=== PATIENT | female | born 1990 | race Caucasian/White ===

== ENCOUNTER 2022-02-10 08:12 | Outpatient (REF) | payer OTHER, SELFPAY ==
[2022-02-10 11:23] LABS: Appearance Urine CLOUDY; Color Urine YELLOW; Glucose Urine UA NEG (NEG); Leukocyte Esterase Urine NEG (NEG); Nitrite Urine NEG (NEG); Specific Gravity - Urine 1.025 (1.005-1.025); Urine Blood NEG (NEG); Urine Ketones NEG (NEG); Urine Protein NEG (NEG-TRACE)
[2022-02-10 11:28] LABS: MANUAL DIFF FLAG NO
[2022-02-10 11:36] LABS: Basophils Absolute Auto 0.1 X10*3/uL (0.0-0.2); Basophils Percent Auto 0.9 % (0-2); Eosinophils Absolute Auto 0.2 X10*3/uL (0.0-0.4); Eosinophils Percent Auto 2.8 % (0-4); Hematocrit 35.8 % (37.0-47.0); Hemoglobin 10.9 g/dl (12.0-16.0); Imm Gran Abs Auto 0.02 X10*3/uL (0.00-0.03); Imm Gran Pct Auto 0.3 % (0.0-0.4); Lymphocytes Absolute Auto 2.6 X10*3/uL (1.2-4.9); Lymphocytes Percent Auto 39.4 % (20-40); Mean Corpuscular HGB Conc 30.4 g/dl (31.0-35.0); Mean Corpuscular Hemoglobin 21.8 pg (27.0-33.0); Mean Corpuscular Volume 71.7 fL (80.0-98.0); Mean Platelet Volume 10.8 fL (9.4-12.3); Monocytes Absolute Auto 0.6 X10*3/uL (0.1-1.2); Monocytes Percent Auto 8.4 % (2-11); Neutrophils Absolute Auto 3.2 x10*3/uL (2.0-8.3); Neutrophils Percent Auto 48.2 % (45-73); Platelet Count 466 X10*3/uL (160-400); Red Blood Count 4.99 X10*6/uL (4.20-5.50); Red Cell Distribution Width 16.2 % (11.0-16.0); White Blood Count 6.7 X10*3/uL (4.8-10.8)
[2022-02-10 12:04] LABS: Alanine Aminotransferase 23 U/L (0-31); Albumin Level 4.1 g/dL (3.5-5.0); Alkaline Phosphatase 65 U/L (39-117); Anion Gap 10 (12-20); Aspartate Amino Transferase 16 U/L (5-31); Bilirubin Total 0.3 mg/dL (0.0-1.0); Blood Urea Nitrogen 14 mg/dL (9-16); Calcium 9.3 mg/dL (8.4-10.2); Carbon Dioxide 24 mmol/L (22-29); Chloride 108 mmol/L (96-108); Cholesterol 220 mg/dL; Estimated Glomerular Filt Rate > 60; Glucose Fasting 111 mg/dL (60-99); HDL Cholesterol 44 mg/dL; LDL Cholesterol Calculated 132 mg/dl; Potassium 4.4 mmol/L (3.3-5.1); Sodium 138 mmol/L (135-145); Total Protein 7.6 g/dL (6.5-8.0); Triglycerides 224 mg/dL
[2022-02-10 12:25] LABS: Amorphous Sediment Urine 4+ /LPF; Squamous Epithelial Cell Urine 1+ /LPF
[2022-02-10 12:26] LABS: Bacteria Urine TRACE /LPF; RBC Urine 0 /HPF (0); WBC Urine 0 /HPF (0-4)
== END 2022-02-10 08:13 | disposition home or self-care (01) ==
LOC: HO.HMGCLDS 08:12
PROVIDERS: Visit Provider Internal Medicine
DX: Z00.00 Encounter for general adult medical examination without abnormal findings (principal)
CPT/HCPCS: 36415; 80053; 80061; 81001; 84443; 85025

== ENCOUNTER 2023-01-19 14:39 | Outpatient (REF) | payer OTHER, SELFPAY ==
[2023-01-20 02:07] LABS: CT PCR NOT DETECTED (Not Detect.); NG PCR NOT DETECTED (Not Detect.)
[2023-01-20 12:54] LABS: BV Int Neg Control Negative (Negative); BV Int Pos Control Positive (Positive)
[2023-01-27 09:14] LABS: HPV 16 RNA NOT DETECTED (NOT DETECTED); HPV mRNA E6/E7 rflx Detected (Not Detected)
== END 2023-01-19 14:40 | disposition home or self-care (01) ==
LOC: HO.LNP 14:39
PROVIDERS: PCP Internal Medicine; Visit Provider Advanced Practice Midwife
DX: Z01.419 Encounter for gynecological examination (general) (routine) without abnormal findings (principal); E66.01 Morbid (severe) obesity due to excess calories; L68.0 Hirsutism; R73.9 Hyperglycemia, unspecified; D64.9 Anemia, unspecified; N92.0 Excessive and frequent menstruation with regular cycle; Z68.41 Body mass index [BMI] 40.0-44.9, adult; Z20.2 Contact with and (suspected) exposure to infections with a predominantly sexual mode of transmission; Z79.899 Other long term (current) drug therapy
CPT/HCPCS: 0353U; 87480; 87510; 87624; 87625; 87660; 88142

== ENCOUNTER 2023-01-31 16:23 | Outpatient (REF) | payer OTHER, SELFPAY ==
--- NOTE | ~2023-01-31 | US_ITS ---
EXAMINATION: US PELVIS COMPLETE CLINICAL INFORMATION: Hirsutism COMPARISON: None TECHNIQUE: Transabdominal and transvaginal imaging was performed. FINDINGS: The uterus is of normal size and echogenicity measuring 8.5 x 5.0 x 6.4 cm. A thickened and heterogeneous endometrium measuring 1.6 cm. Nabothian cysts in the cervix. A 2.5 x 2.0 x 2.6 cm pedunculated myoma off the anterior body of uterus. A 1.8 x 1.8 x 1.9 cm submucosal myoma with a less than 50% submucosal component along the anterior body of uterus. The right ovary is of normal size and echogenicity. The right measures 3.9 x 2.5 x 1.9 cm for a volume of 9.7 mL. The left ovary is mildly enlarged which can be accounted for by a physiologic dominant follicle (no follow-up imaging recommended) and measures 3.8 x 2.4 x 2.7 cm for a volume of 12.9 mL. There is no pelvic free fluid. US/US pelvic and transvaginal IMPRESSION: 1. The left ovary is mildly enlarged entering 12.9 cm in volume which can be accounted for by a physiologic dominant follicle (no follow-up imaging recommended). The right ovary is normal in size. 2. A 1.6 cm thickened and heterogeneous endometrium seen underlying lesion such as polyps difficult to exclude. 3. Myomatous uterus with a 2.6 cm pedunculated myoma and a 1.9 cm submucosal myoma with a less than 60% submucosal component.
== END 2023-01-31 16:24 | disposition home or self-care (01) ==
LOC: HO.US 16:23
PROVIDERS: PCP Internal Medicine; Visit Provider Advanced Practice Midwife
DX: E66.01 Morbid (severe) obesity due to excess calories (principal); L68.0 Hirsutism; N92.0 Excessive and frequent menstruation with regular cycle
CPT/HCPCS: 76830; 76856

== ENCOUNTER 2023-02-01 07:27 | Outpatient (REF) | payer OTHER, SELFPAY ==
[2023-02-01 08:25] LABS: Hematocrit 34.5 % (37.0-47.0); Hemoglobin 10.2 g/dl (12.0-16.0); Mean Corpuscular HGB Conc 29.6 g/dl (31.0-35.0); Mean Corpuscular Hemoglobin 19.6 pg (27.0-33.0); Mean Corpuscular Volume 66.2 fL (80.0-98.0); Mean Platelet Volume 10.2 fL (9.4-12.3); Platelet Count 539 X10*3/uL (160-400); Red Blood Count 5.21 X10*6/uL (4.20-5.50); Red Cell Distribution Width 18.7 % (11.0-16.0); White Blood Count 8.4 X10*3/uL (4.8-10.8)
[2023-02-01 08:33] LABS: Estimated Average Glucose 111 mg/dL; Hemoglobin A1c % 5.5 %
[2023-02-01 09:06] LABS: Anion Gap 16 (12-20); Blood Urea Nitrogen 9 mg/dL (9-16); Calcium 9.5 mg/dL (8.4-10.2); Carbon Dioxide 20 mmol/L (22-29); Chloride 105 mmol/L (96-108); Estimated Glomerular Filt Rate > 60; Glucose Random 111 mg/dL (60-115); Potassium 3.7 mmol/L (3.3-5.1); Sodium 137 mmol/L (135-145)
[2023-02-01 09:23] LABS: TSH reflex Free T4 2.49 uIU/mL (0.32-4.0)
[2023-02-03 14:58] LABS: Sex Hormone Binding Globulin 20 nmol/L (17-124)
[2023-02-03 16:53] LABS: DHEA Sulfate 149 mcg/dL (19-237)
[2023-02-08 07:28] LABS: Testosterone, Free 4.8 pg/mL (0.1-6.4); Testosterone, Total 24 ng/dL (2-45)
== END 2023-02-01 07:28 | disposition home or self-care (01) ==
LOC: HO.LAB 07:27
PROVIDERS: PCP Internal Medicine; Visit Provider Advanced Practice Midwife
DX: Z01.419 Encounter for gynecological examination (general) (routine) without abnormal findings (principal); D64.9 Anemia, unspecified; R73.9 Hyperglycemia, unspecified; N93.9 Abnormal uterine and vaginal bleeding, unspecified; E66.01 Morbid (severe) obesity due to excess calories; L68.0 Hirsutism; Z20.2 Contact with and (suspected) exposure to infections with a predominantly sexual mode of transmission
CPT/HCPCS: 36415; 80048; 82627; 83036; 84270; 84402; 84403; 84443; 85027

== ENCOUNTER 2023-02-18 07:49 | Outpatient (AMB) | payer OTHER, SELFPAY ==
--- NOTE | 2023-02-18 07:54 | A.OFFPC_ITS ---
Vital Signs 02/18/23 07:55 Height 5 ft 7 in Weight 256 lb BMI 40.1 BP 118/74 Blood Pressure Location Lt brachial Position Sitting Pulse 80 Pulse Source Pulse Oximeter Pulse Oximetry (%) 97 Oxygen Delivery Method Room Air Intake Visit Reasons: PE Intake Note: Pt is here today for PE. Allergies SEASONAL ALLERGIES Allergy (Mild, Uncoded 02/18/23 07:57) ITCHY EYES Seasonal allergies in the summ Allergy (Unknown, Uncoded 02/18/23 07:57) Dry Eye Medication List - Last Reconciled 02/18/23 by Jeanette Rueda MD ferrous sulfate 324 mg PO DAILY omeprazole 20 mg PO DAILY Tobacco use date assessed: 02/18/23 Dental Screening Dental Screen Date: 02/18/23 Did you have a dental visit in the last 12 months?: No Did you have a dental problem in the last 6 months where you did not have access to dental care?: No Was dental information given to patient?: Yes HPI PE HPI Details Pt presents for PE. Pt c/o RUQ and epigastric discomfort worse after eating fatty or spicy foods despite taking Omeprazole for 1 1/2 year. Patient denies nausea vomiting hematochezia melena constipation diarrhea. 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 1. Little interest or pleasure in doing things: several days 2. Feeling down, depressed, or hopeless: not at all 3. Trouble falling or staying asleep, or sleeping too much: several days 4. Feeling tired or having little energy: several days 5. Poor appetite or overeating: several days 6. Feeling bad about yourself - or that you are a failure or have let yourself or your family down: not at all 7. Trouble concentrating on things, such as reading the newspaper or watching television: several days 8. Moving or speaking so slowly that other people could have noticed. Or the opposite - being so fidgety or restless that you have been moving around a lot more than usual: not at all 9. Thoughts that you would be better off or of hurting yourself in some way: not at all Total score: 5 Depression Screening Interpretation: Negative Source: Developed by Drs. Dewey Rothman, Gema Keller, Shane Hitchcock and colleagues, with an educational vikki from [employer]. Thrive Questionnaire Date Thrive assessed: 02/18/23 I am a: Patient What is your living situation today?: I have a steady place to live Within the past 12 months, did the food you bought not last and you didn't have the money to get more?: Never true Within the past 12 months, did you worry whether your food would run out before you got money to buy more?: Never true Do you have trouble paying for medicines?: No Do you have trouble getting transportation to medical appointments?: No Do you have trouble paying your heating and electricity bill?: No Do you have trouble taking care of your child, family member or friend?: No Do you have trouble with day-to-day activities such as bathing, preparing meals, shopping, managing finances, etc.?: No Are you currently unemployed and looking for a job?: No Are you interested in more education?: No Please select the resources that you would like help with: None AUDIT C Alcohol Use Questionnaire (AUDIT-C) 1. How often do you have a drink containing alcohol?: Monthly or less 2. How many drinks containing alcohol do you have on a typical day when you are drinking?: 1 or 2 3. How often do you have six or more drinks on one occasion?: Never Total Score: 1 MIMI-7 AMB Questionnaire MIMI-7 Date MIMI - 7 assessed: 02/18/23 Feeling nervous, anxious, or on edge: 1 = Several days Not being able to stop or control worryin = Not at all Worrying too much about different things: 0 = Not at all Trouble relaxin = Not at all Being so restless that it is hard to sit still: 0 = Not at all Becoming easily annoyed or irritable: 1 = Several days Feeling afraid as if something awful might happen: 0 = Not at all Total MIMI-7 score (0-4 normal; 5-9 mild; 10-14 moderate; 15-21 severe): 2 Source: Developed by Drs. Dewey Rothman, Gema Keller, Shane Hitchcock and colleagues, with an educational vikki from [employer]. Review of Systems Const All systems reviewed & are unremarkable except as noted in HPI and below Reports no additional complaints Eyes Reports no additional complaints ENT Reports no additional complaints Card Reports no additional complaints Resp Reports no additional complaints GI Reports no additional complaints Reports no additional complaints Physical exam (Primary Care) Vital Signs: Last Vital Signs Pulse 80 02/18/23 07:55 BP 118/74 02/18/23 07:55 Pulse Ox 97 02/18/23 07:55 Oxygen Delivery Method Room Air 02/18/23 07:55 BMI result Body Mass Index 40.1 Tobacco/Smoking Status: Tobacco use Status Tobacco use date assessed 02/18/23 02/18/23 08:03 Patient Tobacco Use Status Never used Tobacco 02/18/23 08:17 e-Cigarette/Vaping Use Never Used 02/18/23 08:17 PHQ-9: PHQ-9 Score PHQ-9: Total score 5 02/18/23 08:17 Depression Screening Interpretation: Negative Thrive Assessment: Date of Thrive Assessment Date Thrive assessed 02/18/23 02/18/23 08:03 Const General: no acute distress HENMT Ears: hearing grossly normal bilaterally Mouth: Normal oral and palatal mucosa present Throat: Yes posterior oropharynx normal Eyes General: appearance normal, both eyes and all related structures Neck Neck: Yes no lymphadenopathy and Yes supple Resp Effort & Inspection: normal respiratory effort Auscultation: clear to auscultation bilaterally Cardio Rhythm: regular rhythm Heart sounds: S1 normal heart sound present and S2 normal heart sound present GI Inspection: Yes normal to inspection Palpation (GI): Soft to palpation Percussion: Yes normal to percussion Auscultation: normal bowel sounds Assessment and Plan Assessment & Plan (1) Annual physical exam: Code(s): Z00.00 - Encounter for general adult medical examination without abnormal findings Plan: Well-balanced diet regular physical activity discussed with the patient. Lipid profile will be checked today (2) Dysplastic nevi: Comment: Referred to dermatology Code(s): D23.9 - Other benign neoplasm of skin, unspecified (3) Abdominal pain: Code(s): R10.9 - Unspecified abdominal pain Plan: Check abdominal ultrasound to rule out gallstones and stool H pylori antigen. She will be referred to GI (4) Overweight: Code(s): E66.3 - Overweight Plan: Weight loss discussed with the patient Orders: Orders IRON PROFILE Today D64.9 - Anemia, unspecified, E66.01 - Morbid (severe) obesity due to excess calories, Z00.00 - Encounter for general adult medical examination without abnormal findings Liver Panel Today D64.9 - Anemia, unspecified, E66.01 - Morbid (severe) obesity due to excess calories, Z00.00 - Encounter for general adult medical examination without abnormal findings H pylori Ag Stool Today D64.9 - Anemia, unspecified, E66.01 - Morbid (severe) obesity due to excess calories, Z00.00 - Encounter for general adult medical examination without abnormal findings TSH reflex Free T4 Today D64.9 - Anemia, unspecified, E66.01 - Morbid (severe) obesity due to excess calories, Z00.00 - Encounter for general adult medical examination without abnormal findings US abdomen limited Today R10.9 - Unspecified abdominal pain Referrals Dermatology Referral D23.9 - Other benign neoplasm of skin, unspecified, D64.9 - Anemia, unspecified, E66.01 - Morbid (severe) obesity due to excess calories, Z00.00 - Encounter for general adult medical examination without abnormal findings Gastroenterology Referral K21.9 - Gastro-esophageal reflux disease without esophagitis, R10.9 - Unspecified abdominal pain Coding Level of Care Code Est Pt Prev Care 18-39y(49675) Diagnoses Annual physical exam Z00.00 Dysplastic nevi D23.9 Abdominal pain R10.9 Overweight E66.3
[2023-02-18 07:55] VITALS: BP 118/74; PULSE 80; O2SAT 97; BMI 40.1
== END 2023-02-18 08:30 | disposition home or self-care (01) ==
PROVIDERS: Visit Provider Internal Medicine
DX: Z00.00 Encounter for general adult medical examination without abnormal findings (principal); D23.9 Other benign neoplasm of skin, unspecified; R10.9 Unspecified abdominal pain; E66.3 Overweight
CPT/HCPCS: 99395

== ENCOUNTER 2023-02-18 08:31 | Outpatient (REF) | payer OTHER, SELFPAY ==
[2023-02-18 12:03] LABS: Alanine Aminotransferase 49 U/L (0-31); Albumin Level 4.1 g/dL (3.5-5.0); Alkaline Phosphatase 69 U/L (39-117); Aspartate Amino Transferase 28 U/L (5-31); Bilirubin Direct 0.1 mg/dL (0.0-0.5); Bilirubin Total 0.3 mg/dL (0.0-1.0); Iron 38 mcg/dL (30-160); Percent Iron Saturation 11 % (15-50); Total Iron Binding Capacity 349 mcg/dL (228-428); Unsaturated Iron Binding 311 ug/dL
[2023-02-18 12:10] LABS: TSH reflex Free T4 1.65 uIU/mL (0.32-4.0)
== END 2023-02-18 08:32 | disposition home or self-care (01) ==
LOC: HO.HMGCLDS 08:31
PROVIDERS: PCP Internal Medicine; Visit Provider Internal Medicine
DX: Z00.00 Encounter for general adult medical examination without abnormal findings (principal); E66.01 Morbid (severe) obesity due to excess calories; D64.9 Anemia, unspecified
CPT/HCPCS: 36415; 80076; 83540; 84443

== ENCOUNTER 2023-03-18 13:55 | Outpatient (AMB) | payer OTHER, SELFPAY ==
[2023-03-18 14:33] VITALS: BP 120/70; BMI 40.2
--- NOTE | 2023-03-18 14:33 | A.OFFVIS_ITS ---
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 She also had some features for PCOS including hirsutism over weight and hair thinning on top. So full lab panel was ordered including fasting labs and labs to evaluate for features of PCOS. All of these have been reviewed in great detail additionally her Pap smear showed HPV virus but no cell changes. She also had Gardnerella her CBC was low her fasting glucose was in the prediabetic range. The ultrasound showed fibroids and a thickened endometrium however she started her menses the following week after the ultrasound so that physiologically makes sense. Reviewed each and every ultrasound finding and every single lab finding and reviewed possibilities and interventions. She is taking her iron she feels like she is trying to make better choices with her diet and exercise and she has been working out at least an hour day in the gym here at the hospital and she is feeling much better in noticing results already. She has her follow-up appointment with her primary next year and I am going to order a follow-up ultrasound for 1 year from the previous ultrasound and we will also plan on repeating her Pap smear next year as well. Discussed all of these in concert with the possibility of PCOS even though some of the PCOS type labs specifically did not show evidence of it. She is going to continue her excellent self-care efforts. 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 Tobacco Use Status: Never used Tobacco e-Cigarette/Vaping Use: Never Used service: No Current occupational status: employed Cognitive needs: No Hearing needs: No Vision needs: Yes (contacts) Female Reproductive History Menstrual Date of last menstrual period: 03/11/23 control method: none Date of last pap smear: 01/20/23 (+HPV) History of abnormal pap smear: Yes Physical Exam Vital Signs: Last Vital Signs BP 120/70 03/18/23 14:33 BMI result Body Mass Index 40.2 Results Reviewed Results Reviewed: Name: Jasmin Cabrera Age/Sex: 33/F : 1990 Unit#: [id number] Attend Dr: Sherri Loomis CNM Re02/01/23 Status: DEP [facility] SPEC : [id number] JULIA: 02/01/23 STATUS: COMP REQ : [id number] RECD: 02/01/[address]: Sherri Loomis CNM COMP: 02/01/23 ENTERED: 02/01/[address]: Jeanette Rueda MD ORDERED: CBC No Diff Test Result Flag Reference Site WBC 8.4 4.8-10.8 X10*3/uL RBC 5.21 4.20-5.50 X10*6/uL HGB 10.2 L 12.0-16.0 g/dl HCT 34.5 L 37.0-47.0 % MCV 66.2 L 80.0-98.0 fL MCH 19.6 L 27.0-33.0 pg MCHC 29.6 L 31.0-35.0 g/dl RDW 18.7 H 11.0-16.0 % PLT 539 H 160-400 X10*3/uL MPV 10.2 9.4-12.3 fL NRBC Pct Auto 0.0 0.0-0.2 /100WBC NRBC Abs Auto 0.000 0.0-0.012 X10 *3/uL Name:?MarvelkaylahRoelswapnil Age/Sex: 32/F Attending: Sherri Loomis CNM : 1990 Submitted by: Sherri Loomis CNM Copies to: Jeanette Rueda MD MR #: [id number] ? Status: DEP REF Collected: 01/19/23 Location: [facility] Received: 01/20/23 Interpretation Satisfactory for evaluation. Negative for intraepithelial lesion or malignancy. Coccobacilli consistent with shift in vaginal wesley. Moderate inflammation. HPV mRNA E6/E7:? DETECTED This assay detects E6/E7 viral messenger RNA (mRNA) from 14 high-risk HPV types (16, 18, 31, 33, 35, 39, 45, 51, 52, 56, 58, 59, 66, 68) HPV Type 16 RNA:? Not Detected HPV Type 18/45 RNA: ? Not Detected HPV testing performed by [facility], [place], [place].? See reference laboratory portion of the EMR for entire report. Patient: Jasmin Cabrera MR#: [id number] : 1990 Acct:[id number] Age/Sex: 33 / F ADM Date: 01/31/23 Loc: . Attending Dr: Sherri Loomis CNM Ordering Physician: Sherri Loomis CNM Date of Service: 01/31/23 Procedure(s): US pelvic and transvaginal Accession Number(s): [id number] cc: Sherri Loomis CNM~ EXAMINATION: US PELVIS COMPLETE CLINICAL INFORMATION: Hirsutism COMPARISON: None TECHNIQUE: Transabdominal and transvaginal imaging was performed. FINDINGS: The uterus is of normal size and echogenicity measuring 8.5 x 5.0 x 6.4 cm. A thickened and heterogeneous endometrium measuring 1.6 cm. Nabothian cysts in the cervix. A 2.5 x 2.0 x 2.6 cm pedunculated myoma off the anterior body of uterus. A 1.8 x 1.8 x 1.9 cm submucosal myoma with a less than 50% submucosal component along the anterior body of uterus. The right ovary is of normal size and echogenicity. The right measures 3.9 x 2.5 x 1.9 cm for a volume of 9.7 mL. The left ovary is mildly enlarged which can be accounted for by a physiologic dominant follicle (no follow-up imaging recommended) and measures 3.8 x 2.4 x 2.7 cm for a volume of 12.9 mL. There is no pelvic free fluid. US/US pelvic and transvaginal IMPRESSION: 1.? The left ovary is mildly enlarged entering 12.9 cm in volume which can be accounted for by a physiologic dominant follicle (no follow-up imaging recommended). The right ovary is normal in size. 2.? A 1.6 cm thickened and heterogeneous endometrium seen underlying lesion such as polyps difficult to exclude. 3.? Myomatous uterus with a 2.6 cm pedunculated myoma and a 1.9 cm submucosal myoma with a less than 60% submucosal component. ? Dictated By: Courtney Moore MD Signed By: <Electronically signed by Courtney Moore MD in OV> 02/05/231656 DD/ 53 TD/TT:? Skip Hoist Operator: - Unit#: [id number] Attend Dr: Sherri Loomis CNM Re02/01/23 Status: DEP REF Location: .LAB Disch: SPEC : [id number] JULIA: 02/01/23 STATUS: COMP REQ : [id number] RECD: 02/01/[address]: Sherri Loomis CNM COMP: 02/08/23 ENTERED: 02/01/[address]: Jeanette Rueda MD ORDERED: DHEAS, Sex Hor Bin Bridgette, Testost Fr & T Test Result Flag Reference Site DHEA-Sulfate 149 19-237 mcg/dL QUM THIS TEST WAS PERFORMED AT: [facility] [address] [place] [id number] DANITA GUERRA MD Sex Hor Bin Bridgette 20 17-124 nmol/L QUM THIS TEST WAS PERFORMED AT: [facility] [address] [place] [phone] DANITA GUERRA MD Testost, Tot 24 2-45 ng/dL QUM For additional information, please refer to http://education.[employer]/faq/ TmgdwBiuqbcionrieSMSNNYHNW361 (This link is being provided for informational/ educational purposes only.) This test was developed and its analytical performance characteristics have been determined by [facility] [place], [place]. It has not been cleared or approved by the U.S. Food and Drug Administration. This assay has been validated pursuant to the CLIA regulations and is used for clinical purposes. Testost, Free 4.8 0.1-6.4 pg/mL QUM This test was developed and its analytical performance characteristics have been determined by [facility] [place], [place]. It has not been cleared or approved by the U.S. Food and Drug Administration. This assay has been validated pursuant to the CLIA regulations and is used for clinical purposes. THIS TEST WAS PERFORMED AT: [facility] [address] ISAIAS WOODWARD MD,PHD SPEC : [id number] JULIA: 02/10/22 STATUS: COMP REQ : [id number] RECD: 02/10/[address] [facility] [address]: Jeanette Rueda MD COMP: 02/10/22 ENTERED: 02/10/[address] [facility] [address]: ORDERED: CMP Fast, Lipid Panel, TSH Rflx Test Result Flag Reference Site Sodium 138 135-145 mmol/L Potassium 4.4 3.3-5.1 mmol/L CL 108 96-108 mmol/L CO2 24 22-29 mmol/L Gap 10 L 12-20 BUN 14 9-16 mg/dL Creat 0.81 0.5-1.4 mg/dL EGFR > 60 NOTE: For -Mongolian individuals, multiply the result by 1.210. Chronic Kidney Disease: Estimated GFR < 60 mL/min/1.73m2 Severe Kidney Disease: Estimated GFR < 15 mL/min/1.73m2 FBS 111 H 60-99 mg/dL A fasting glucose from 100-125 mg/dl is considered impaired (pre-diabetes). CA 9.3 8.4-10.2 mg/dL Total Bili 0.3 0.0-1.0 mg/dL AST (GOT) 16 5-31 U/L ALT (GPT) 23 0-31 U/L Protein, Total 7.6 6.5-8.0 g/dL Alb 4.1 3.5-5.0 g/dL Triglyceride 224 mg/dL Desirable Triglyceride: less than 150 mg/dL Borderline High Triglyceride 150-199 mg/dL High Triglyceride: 200-499 mg/dL Very High Triglyceride: greater than or equal to 5OO mg/dL Chol 220 mg/dL Desirable Cholesterol: less than 200 mg/dL Borderline High Cholesterol: 200-239 mg/dL High Cholesterol: greater than 239 mg/dL LDL Calculated 132 mg/dl Desirable LDL: less than 100 mg/dL Near Optimal/Above Optimal LDL: 110-129 mg/dL Borderline High LDL: 130-159 mg/dL High LDL: 160-189 mg/dL Very High LDL: greater than or equal to 190 mg/dL HDL 44 mg/dL Desirable HDL: greater than 40 mg/dL Note: This HDL assay may give artificially low results in patients with liver disease. Alk Phos 65 39-117 U/L TSH 2.30 0.32-4.0 uIU/mL Assessment & Plan Assessment & Plan (1) Menorrhagia with regular cycle: Code(s): N92.0 - Excessive and frequent menstruation with regular cycle (2) Hirsutism: Code(s): L68.0 - Hirsutism (3) Fibroids: Code(s): D21.9 - Benign neoplasm of connective and other soft tissue, unspecified (4) Cervical cancer screening: Comment: HPV is positive; Pap= negative; f/u 1 yr. Code(s): Z12.4 - Encounter for screening for malignant neoplasm of cervix (5) Obesity, morbid, BMI 40.0-49.9: Code(s): E66.01 - Morbid (severe) obesity due to excess calories (6) Anemia: Code(s): D64.9 - Anemia, unspecified (7) Hyperglycemia: Code(s): R73.9 - Hyperglycemia, unspecified Plan Is here to review her ultrasound that she had done to evaluate if there is any reason for her heavy periods it. She also had some features for PCOS including hirsutism over weight and hair thinning on top. So full lab panel was ordered including fasting labs and labs to evaluate for features of PCOS. All of these have been reviewed in great detail additionally her Pap smear showed HPV virus but no cell changes. She also had Gardnerella her CBC was low her fasting glucose was in the prediabetic range. The ultrasound showed fibroids and a thickened endometrium however she started her menses the following week after the ultrasound so that physiologically makes sense. Reviewed each and every ultrasound finding and every single lab finding and reviewed possibilities and interventions. She is taking her iron she feels like she is trying to make better choices with her diet and exercise and she has been working out at least an hour day in the gym here at the hospital and she is feeling much better in noticing results already. She has her follow-up appointment with her primary next year and I am going to order a follow-up ultrasound for 1 year from the previous ultrasound and we will also plan on repeating her Pap smear next year as well. Discussed all of these in concert with the possibility of PCOS even though some of the PCOS type labs specifically did not show evidence of it. She is going to continue her excellent self-care efforts. education was done about all of the above Orders: Orders US pelvic and transvaginal 11 Months D21.9 - Benign neoplasm of connective and other soft tissue, unspecified, E66.01 - Morbid (severe) obesity due to excess calories, L68.0 - Hirsutism, N92.0 - Excessive and frequent menstruation with regular cycle, Z12.4 - Encounter for screening for malignant neoplasm of cervix Coding Level of Care Code Est Pt Level 3 (19660) Diagnoses Menorrhagia with regular cycle N92.0 Hirsutism L68.0 Fibroids D21.9 Cervical cancer screening Z12.4 Obesity, morbid, BMI 40.0-49.9 E66.01 Anemia D64.9 Hyperglycemia R73.9
== END 2023-03-18 15:14 | disposition home or self-care (01) ==
LOC: HO.HWS 13:55
PROVIDERS: PCP Internal Medicine; Visit Provider Advanced Practice Midwife
DX: N92.0 Excessive and frequent menstruation with regular cycle (principal); L68.0 Hirsutism; D21.9 Benign neoplasm of connective and other soft tissue, unspecified; Z12.4 Encounter for screening for malignant neoplasm of cervix; E66.01 Morbid (severe) obesity due to excess calories; D64.9 Anemia, unspecified; R73.9 Hyperglycemia, unspecified
CPT/HCPCS: 99213

== ENCOUNTER → 2023-03-18 13:55 | Outpatient (BNVA) | payer OTHER, SELFPAY | PROVIDERS: PCP Internal Medicine; Visit Provider Advanced Practice Midwife ==

== ENCOUNTER 2023-03-22 07:47 | Outpatient (REF) | payer OTHER, SELFPAY ==
--- NOTE | ~2023-03-22 | US_ITS ---
EXAMINATION: US ABDOMEN LIMITED CLINICAL INFORMATION: Unspecified abdominal pain. COMPARISON: None available. TECHNIQUE: Real-time imaging of the right upper quadrant abdominal viscera. FINDINGS: PANCREAS: Normal. LIVER: The liver is normal in size. The liver contour is normal. There is diffuse increased liver parenchymal echogenicity. No focal hepatic lesion. There is no intrahepatic biliary duct dilatation seen. GALLBLADDER: Normal. The gallbladder is physiologically distended without evidence of stones, sludge, polyps, wall thickening or pericholecystic fluid. COMMON BILE DUCT: Normal in caliber measuring 0.3 cm in diameter. RIGHT KIDNEY: Normal. No hydronephrosis. No renal calculi or focal parenchymal lesions. The kidney measures 10.9 cm in maximum dimension. FREE FLUID: None. US/US abdomen limited IMPRESSION: There is generalized increase in hepatic echotexture, consistent with fatty infiltration or hepatocellular disease. Please correlate clinically. No focal hepatic mass or intrahepatic biliary dilatation is seen.
== END 2023-03-22 07:48 | disposition home or self-care (01) ==
LOC: HO.US 07:47
PROVIDERS: PCP Internal Medicine; Visit Provider Internal Medicine
DX: R10.9 Unspecified abdominal pain (principal)
CPT/HCPCS: 76705

== ENCOUNTER 2023-06-01 11:23 | Outpatient (AMB) | payer OTHER, SELFPAY ==
--- NOTE | 2023-06-01 11:27 | MHC.OFFVIS ---
Intake Vital Signs 06/01/23 11:28 Height 5 ft 7 in Weight 253 lb 8.505 oz BMI 39.7 BP 130/76 Blood Pressure Location Lt brachial Position Sitting Pulse 69 Intake Visit Reasons: Gastroesophageal reflux disease (GERD) Intake Note: Jasmin presents in the office as a new patient for GERD. CC: She is here today for her GERD - she takes omeprazole and she states that she does see a difference when she does not take it. No irregular bowel movements. She has pains in her stomach at times but no chest. Intervention Analyst Required: No Allergies SEASONAL ALLERGIES Allergy (Mild, Uncoded 06/01/23 11:29) ITCHY EYES Seasonal allergies in the summ Allergy (Unknown, Uncoded 06/01/23 11:29) Dry Eye HPI HPI Comments History of Present Illness Details 33 y.o F with PMH of obesity who is here for abd pain. Reports has had sx for more than a year which she describes as burning pain retrosternally that occurs postprandially. Occurs while supine as well. Sx fairly controlled on omeprazole which she has been taking for almost a year. More recently has also been noticing epigastric discomfort. No nausea, vomiting, regurgitation. US Abd without gallstones or sludge but did show fatty liver. ALT>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 Tobacco Use Status: Never used Tobacco e-Cigarette/Vaping Use: Never Used service: No Current occupational status: employed Cognitive needs: No Hearing needs: No Vision needs: Yes (contacts) Review of Systems Const All systems reviewed & are unremarkable except as noted in HPI and below Physical Exam Vital Signs: Last Vital Signs Pulse 69 06/01/23 11:28 BP 130/76 06/01/23 11:28 BMI result Body Mass Index 39.7 Gen appear: NAD HEENT: nonicteric, no cervical lymphadenopathy Chest: CTA CVS: Regular S1/S2 Abd: soft, nontender, nondistended, bowel sounds + Ext: no peripheral edema Neuro: A/Ox3, noted to move all extremities spontaneously Psych: interacting appropriately Assessment & Plan Assessment & Plan (1) GERD (gastroesophageal reflux disease): Code(s): K21.9 - Gastro-esophageal reflux disease without esophagitis (2) Abdominal pain: Code(s): R10.9 - Unspecified abdominal pain (3) Obesity, morbid, BMI 40.0-49.9: Code(s): E66.01 - Morbid (severe) obesity due to excess calories Plan Discussed most likely from reflux disease with obesity being a risk factor. Pt already knows to avoid food triggers and to not lay right after a meal. Her main concern is usage of PPI prison as has not been able to go off of it for more than a week. Plan: - Will book for an EGD to document GERD/esophagitis as well as eval for hiatal hernia. This is to be done off PPI x 2 weeks. - Will plan for possible donovan placement during that egd if no esophagitis - Pt educated that if GERD confirmed will likely need ppi therapy indefinitely unless regains her reflux barrier with aggressive weight loss - She is also being referred to bariatric medicine for eval given high BMI and fatty liver - Ultimately, this would also help if pt wishes to pursue anti-reflux surgery down the road which can potentially be combined with bariatric procedure. Pt is aware that EGD will be booked electively. Follow up after EGD Orders: Referrals Bariatric Surgery Referral E66.01 - Morbid (severe) obesity due to excess calories Coding Level of Care Code New Pt Level 4 (23527) Diagnoses GERD (gastroesophageal reflux disease) K21.9 Abdominal pain R10.9 Obesity, morbid, BMI 40.0-49.9 E66.01
[2023-06-01 11:28] VITALS: BP 130/76; PULSE 69; BMI 39.7
== END 2023-06-01 13:29 | disposition home or self-care (01) ==
PROVIDERS: PCP Internal Medicine; Visit Provider Internal Medicine
DX: K21.9 Gastro-esophageal reflux disease without esophagitis (principal); R10.9 Unspecified abdominal pain; E66.01 Morbid (severe) obesity due to excess calories
CPT/HCPCS: 99204

== ENCOUNTER → 2023-06-01 11:23 | Outpatient (BNVA) | payer OTHER, SELFPAY | PROVIDERS: PCP Internal Medicine; Visit Provider Internal Medicine ==

== ENCOUNTER 2023-08-23 08:27 | Outpatient (REF) | payer OTHER, SELFPAY ==
[2023-08-23 09:01] LABS: Hematocrit 36.5 % (37.0-47.0); Hemoglobin 10.9 g/dl (12.0-16.0); Mean Corpuscular HGB Conc 29.9 g/dl (31.0-35.0); Mean Corpuscular Hemoglobin 21.2 pg (27.0-33.0); Mean Corpuscular Volume 71.2 fL (80.0-98.0); Mean Platelet Volume 10.5 fL (9.4-12.3); Platelet Count 478 X10*3/uL (160-400); Red Blood Count 5.13 X10*6/uL (4.20-5.50); Red Cell Distribution Width 17.3 % (11.0-16.0)
== END 2023-08-23 08:28 | disposition home or self-care (01) ==
LOC: HO.LAB 08:27
PROVIDERS: PCP Internal Medicine; Visit Provider Advanced Practice Midwife
DX: D64.9 Anemia, unspecified (principal)
CPT/HCPCS: 36415; 85027

== ENCOUNTER 2024-02-16 16:10 | Outpatient (REF) | payer OTHER, SELFPAY ==
--- NOTE | ~2024-02-16 | US_ITS ---
EXAMINATION: US PELVIS CLINICAL INFORMATION: Excessive menses, last menstrual period January 25, 2024. COMPARISON: None available. TECHNIQUE: January 31, 2023. FINDINGS: The uterus is anteverted and measures 9.2 x 4.2 x 6.1 cm. 5.3 x 4.1 x 4.1 cm fibroid, previously 2.5 x 2.0 x 2.6 cm. 1.8 x 1.9 x 1.8 cm fibroid identified on the prior exam is not appreciated on the current exam. Nabothian cysts. Endometrial thickness of 15 mm. Possible 2.0 x 1.0 x 0.9 cm endometrial polyp. Right ovary measures 3.2 x 2.5 x 2.1 cm, volume 8.9 mL. Left ovary measures 2.9 x 2.4 x 2.3 cm, volume 8.3 mL. Bilateral ovaries demonstrate multiple follicles. No significant free fluid. US/US pelvic and transvaginal IMPRESSION: 1. Possible 2.0 cm endometrial polyp. 2. Endometrial thickness of 15 mm. 3. Dominant 5.3 cm uterine mass characteristic of a fibroid. Previous exam demonstrated 2.6 cm and 1.9 cm fibroids.
== END 2024-02-16 16:11 | disposition home or self-care (01) ==
LOC: HO.US 16:10
PROVIDERS: PCP Internal Medicine; Visit Provider Advanced Practice Midwife
DX: N92.0 Excessive and frequent menstruation with regular cycle (principal); L68.0 Hirsutism; D21.9 Benign neoplasm of connective and other soft tissue, unspecified; E66.01 Morbid (severe) obesity due to excess calories
CPT/HCPCS: 76830; 76856

== ENCOUNTER 2024-02-24 08:28 | Outpatient (AMB) | payer OTHER, SELFPAY ==
[2024-02-24 08:29] VITALS: BP 136/88; PULSE 84; O2SAT 96; BMI 41.0
--- NOTE | 2024-02-24 08:29 | MHC.PC.OV ---
Vital Signs 02/24/24 08:29 Height 5 ft 7 in Weight 262 lb BMI 41.0 BP 136/88 Blood Pressure Location Lt brachial Position Sitting Pulse 84 Pulse Source Pulse Oximeter Pulse Oximetry (%) 96 Oxygen Delivery Method Room Air Intake Visit Reasons: PE Intake Note: Pt is here today for PE. Allergies SEASONAL ALLERGIES Allergy (Mild, Uncoded 02/24/24 08:31) ITCHY EYES Seasonal allergies in the summ Allergy (Unknown, Uncoded 02/24/24 08:31) Dry Eye Medication List - Last Reconciled 02/24/24 by Jeanette Rueda MD ferrous sulfate 325 mg PO DAILY 90 days minoxidil 1.25 mg (1/2 x 2.5 mg) PO DAILY 90 days omeprazole 20 mg PO DAILY Tobacco use date assessed: 02/24/24 Dental Screening Dental Screen Date: 02/24/24 Did you have a dental visit in the last 12 months?: Yes Did you have a dental problem in the last 6 months where you did not have access to dental care?: No Was dental information given to patient?: Patient has dentist HPI PE HPI Details PATIENT PRESENTS FOR PHYSICAL PFSH Surgical History No pertinent past surgical history Family History Mother HTN (hypertension) Maternal Uncle Colon cancer 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 1. Little interest or pleasure in doing things: several days 2. Feeling down, depressed, or hopeless: not at all 3. Trouble falling or staying asleep, or sleeping too much: not at all 4. Feeling tired or having little energy: several days 5. Poor appetite or overeating: not at all 6. Feeling bad about yourself - or that you are a failure or have let yourself or your family down: not at all 7. Trouble concentrating on things, such as reading the newspaper or watching television: several days 8. Moving or speaking so slowly that other people could have noticed. Or the opposite - being so fidgety or restless that you have been moving around a lot more than usual: not at all 9. Thoughts that you would be better off or of hurting yourself in some way: not at all Total score: 3 Depression Screening Interpretation: Negative Depression Screening Done: Yes Source: Developed by Drs. Dewey Rothman, Gema Keller, Shane Hitchcock and colleagues, with an educational vikki from [employer]. Thrive Questionnaire Date Thrive assessed: 02/24/24 I am a: Patient What is your living situation today?: I have a steady place to live Within the past 12 months, did the food you bought not last and you didn't have the money to get more?: Never true Within the past 12 months, did you worry whether your food would run out before you got money to buy more?: Never true Do you have trouble paying for medicines?: No Do you have trouble getting transportation to medical appointments?: No Do you have trouble paying your heating and electricity bill?: No Do you have trouble taking care of your child, family member or friend?: No Do you have trouble with day-to-day activities such as bathing, preparing meals, shopping, managing finances, etc.?: No Are you currently unemployed and looking for a job?: No Are you interested in more education?: No Please select the resources that you would like help with: Housing/Halfway Currently or been in a relationship where the following occur: No concerns reported THRIVE Score: 0 AUDIT C Alcohol Use Questionnaire (AUDIT-C) 1. How often do you have a drink containing alcohol?: 2-4 times a month 2. How many drinks containing alcohol do you have on a typical day when you are drinking?: 3 or 4 3. How often do you have six or more drinks on one occasion?: Less than monthly Total Score: 4 MIMI-7 AMB Questionnaire MIMI-7 Date MIMI - 7 assessed: 02/24/24 Feeling nervous, anxious, or on edge: 0 = Not at all Not being able to stop or control worryin = Not at all Worrying too much about different things: 0 = Not at all Trouble relaxin = Not at all Being so restless that it is hard to sit still: 0 = Not at all Becoming easily annoyed or irritable: 0 = Not at all Feeling afraid as if something awful might happen: 0 = Not at all Total MIMI-7 score (0-4 normal; 5-9 mild; 10-14 moderate; 15-21 severe): 0 Source: Developed by Drs. Dewey Rothman, Gema Keller, Shane Hitchcock and colleagues, with an educational vikki from [employer]. Review of Systems Const All systems reviewed & are unremarkable except as noted in HPI and below Eyes Reports no additional complaints ENT Reports no additional complaints Card Reports no additional complaints Resp Reports no additional complaints GI Reports no additional complaints Reports no additional complaints Physical exam (Primary Care) Vital Signs: Last Vital Signs Pulse 84 02/24/24 08:29 BP 136/88 02/24/24 08:29 Pulse Ox 96 02/24/24 08:29 Oxygen Delivery Method Room Air 02/24/24 08:29 BMI result Body Mass Index 41.0 Tobacco/Smoking Status: Tobacco use Status Tobacco use date assessed 02/24/24 02/24/24 08:34 Patient Tobacco Use Status Never used Tobacco 02/24/24 08:34 e-Cigarette/Vaping Use Never Used 02/24/24 08:34 PHQ-9: PHQ-9 Score PHQ-9: Total score 3 02/24/24 08:34 Depression Screening Interpretation: Negative Thrive Assessment: Date of Thrive Assessment Date Thrive assessed 02/24/24 02/24/24 08:34 Currently or been in a relationship where the following occur: No concerns reported Const General: no acute distress HENMT Head: Yes normal to inspection Ears: TM's normal bilaterally Face and sinus: Yes normal facial exam Teeth and gingiva: dentition normal Neck Neck: Yes supple Resp Effort & Inspection: normal respiratory effort Auscultation: clear to auscultation bilaterally Cardio Rhythm: regular rhythm Heart sounds: S1 normal heart sound present and S2 normal heart sound present GI Inspection: Yes normal to inspection Palpation (GI): Soft to palpation Percussion: Yes normal to percussion Auscultation: normal bowel sounds Assessment and Plan Assessment & Plan (1) Well woman exam with routine gynecological exam: Code(s): Z01.419 - Encounter for gynecological examination (general) (routine) without abnormal findings (2) Obesity, morbid, BMI 40.0-49.9: Code(s): E66.01 - Morbid (severe) obesity due to excess calories Plan: Increase physical activity decrease caloric intake and weight loss discussed with the patient (3) Annual physical exam: Code(s): Z00.00 - Encounter for general adult medical examination without abnormal findings (4) Decreased hearing: Code(s): H91.90 - Unspecified hearing loss, unspecified ear Plan: Referred to hearing test (5) Anemia: Comment: Iron deficiency secondary to menorrhagia Code(s): D64.9 - Anemia, unspecified Plan: Continue iron supplement monitor CBC Orders: Orders Comprehensive [place]. Panel Fast Today E66.01 - Morbid (severe) obesity due to excess calories, Z00.00 - Encounter for general adult medical examination without abnormal findings, Z01.419 - Encounter for gynecological examination (general) (routine) without abnormal findings TSH reflex Free T4 Today E66.01 - Morbid (severe) obesity due to excess calories, Z00.00 - Encounter for general adult medical examination without abnormal findings, Z01.419 - Encounter for gynecological examination (general) (routine) without abnormal findings UA w Microscopic Today E66.01 - Morbid (severe) obesity due to excess calories, Z00.00 - Encounter for general adult medical examination without abnormal findings, Z01.419 - Encounter for gynecological examination (general) (routine) without abnormal findings Vitamin D 25-OH Total Today E66.01 - Morbid (severe) obesity due to excess calories, Z01.419 - Encounter for gynecological examination (general) (routine) without abnormal findings Complete Blood Count Auto Diff Today E66.01 - Morbid (severe) obesity due to excess calories, Z00.00 - Encounter for general adult medical examination without abnormal findings, Z01.419 - Encounter for gynecological examination (general) (routine) without abnormal findings Lipid Panel Today E66.01 - Morbid (severe) obesity due to excess calories, Z00.00 - Encounter for general adult medical examination without abnormal findings, Z01.419 - Encounter for gynecological examination (general) (routine) without abnormal findings IRON PROFILE Today E66.01 - Morbid (severe) obesity due to excess calories, Z01.419 - Encounter for gynecological examination (general) (routine) without abnormal findings Referrals Speech and Hearing Referral H91.90 - Unspecified hearing loss, unspecified ear Coding Level of Care Code Est Pt Prev Care 18-39y([id number]) Diagnoses Well woman exam with routine gynecological exam Z01.419 Obesity, morbid, BMI 40.0-49.9 E66.01 Annual physical exam Z00.00 Decreased hearing H91.90 Anemia D64.9
== END 2024-02-24 09:18 | disposition home or self-care (01) ==
PROVIDERS: PCP Internal Medicine; Visit Provider Internal Medicine
DX: Z00.00 Encounter for general adult medical examination without abnormal findings (principal); E66.01 Morbid (severe) obesity due to excess calories; Z68.41 Body mass index [BMI] 40.0-44.9, adult; H91.90 Unspecified hearing loss, unspecified ear; D64.9 Anemia, unspecified
CPT/HCPCS: 99395

== ENCOUNTER 2024-02-24 09:03 | Outpatient (REF) | payer OTHER, SELFPAY ==
[2024-02-24 10:01] LABS: MANUAL DIFF FLAG NO
[2024-02-24 10:20] LABS: Basophils Absolute Auto 0.1 X10*3/uL (0.0-0.2); Basophils Percent Auto 1.1 % (0-2); Eosinophils Absolute Auto 0.2 X10*3/uL (0.0-0.4); Eosinophils Percent Auto 3.2 % (0-4); Hematocrit 36.8 % (37.0-47.0); Hemoglobin 11.5 g/dl (12.0-16.0); Imm Gran Abs Auto 0.01 X10*3/uL (0.00-0.03); Imm Gran Pct Auto 0.2 % (0.0-0.4); Lymphocytes Percent Auto 42.8 % (20-40); Mean Corpuscular HGB Conc 31.3 g/dl (31.0-35.0); Mean Corpuscular Hemoglobin 23.5 pg (27.0-33.0); Mean Corpuscular Volume 75.3 fL (80.0-98.0); Mean Platelet Volume 10.5 fL (9.4-12.3); Monocytes Absolute Auto 0.4 X10*3/uL (0.1-1.2); Monocytes Percent Auto 8.8 % (2-11); Neutrophils Percent Auto 43.9 % (45-73); Platelet Count 359 X10*3/uL (160-400); Red Blood Count 4.89 X10*6/uL (4.20-5.50); Red Cell Distribution Width 15.8 % (11.0-16.0); White Blood Count 4.7 X10*3/uL (4.8-10.8)
[2024-02-24 10:42] LABS: Alanine Aminotransferase 40 U/L (0-31); Alkaline Phosphatase 56 U/L (39-117); Anion Gap 12 (12-20); Aspartate Amino Transferase 20 U/L (5-31); Bilirubin Total 0.3 mg/dL (0.0-1.0); Blood Urea Nitrogen 10 mg/dL (9-16); Calcium 9.5 mg/dL (8.4-10.2); Carbon Dioxide 24 mmol/L (22-29); Chloride 107 mmol/L (96-108); Cholesterol 209 mg/dL (<200); Estimated Glomerular Filt Rate > 60; Glucose Fasting 105 mg/dL (60-99); HDL Cholesterol 43 mg/dL (>40); Iron 34 mcg/dL (30-160); LDL Cholesterol Calculated 125 mg/dL (<100); Percent Iron Saturation 12 % (15-50); Potassium 3.9 mmol/L (3.3-5.1); Sodium 139 mmol/L (135-145); Total Iron Binding Capacity 276 mcg/dL (228-428); Total Protein 7.6 g/dL (6.5-8.0); Triglycerides 207 mg/dL (<150); Unsaturated Iron Binding 242 ug/dL
[2024-02-24 11:06] LABS: TSH reflex Free T4 1.47 uIU/mL (0.32-4.0); Vitamin D 25-OH Total 35.3 ng/mL (>30)
== END 2024-02-24 09:04 | disposition home or self-care (01) ==
LOC: HO.HMGCLDS 09:03
PROVIDERS: PCP Internal Medicine; Visit Provider Internal Medicine
DX: Z00.00 Encounter for general adult medical examination without abnormal findings (principal); E66.01 Morbid (severe) obesity due to excess calories; Z68.41 Body mass index [BMI] 40.0-44.9, adult; Z68.42 Body mass index [BMI] 45.0-49.9, adult
CPT/HCPCS: 36415; 80053; 80061; 82306; 83540; 84443; 85025

== ENCOUNTER 2024-04-11 08:24 | Outpatient (REF) | payer OTHER, SELFPAY ==
[2024-04-11 11:11] LABS: Appearance Urine Clear; Color Urine Yellow; Glucose Urine UA Negative (Negative); Leukocyte Esterase Urine Negative (Negative); Nitrite Urine Negative (Negative); PH 5.5 (5.0-9.0); Urine Blood Negative (Negative); Urine Ketones Negative (Negative); Urine Protein Negative (Neg-Trace)
[2024-04-11 11:16] LABS: Bacteria Urine None Seen (None Seen); Hyaline Casts Urine 0-2 /LPF (0-2); RBC Urine 0-2 /HPF (0-2); WBC Urine 0-5 /HPF (0-5)
[2024-04-11 11:55] LABS: Iron 42 mcg/dL (30-160); Percent Iron Saturation 15 % (15-50); Total Iron Binding Capacity 272 mcg/dL (228-428); Unsaturated Iron Binding 230 ug/dL
[2024-04-13 16:58] LABS: Hematocrit 37.7 % (35.0-45.0); Hemoglobin 11.9 g/dL (11.7-15.5); MCH 23.5 pg (27.0-33.0); MCV 74.5 fL (80.0-100.0); RBC 5.06 Million/uL (3.80-5.10); RDW 14.6 % (11.0-15.0)
== END 2024-04-11 08:25 | disposition home or self-care (01) ==
LOC: HO.10HDL 08:24
PROVIDERS: Visit Provider Internal Medicine
DX: Z00.00 Encounter for general adult medical examination without abnormal findings (principal); E66.01 Morbid (severe) obesity due to excess calories; D64.9 Anemia, unspecified
CPT/HCPCS: 36415; 81001; 83020; 83540; 85014; 85018; 85041

== ENCOUNTER 2024-04-24 15:56 | Outpatient (REF) | payer OTHER, SELFPAY | END 2024-04-24 15:57 | disposition home or self-care (01) | LOC: HO.SH 15:56 | PROVIDERS: Visit Provider Internal Medicine | DX: Z01.118 Encounter for examination of ears and hearing with other abnormal findings (principal); H93.293 Other abnormal auditory perceptions, bilateral | CPT/HCPCS: 92552; 92556; 92567 ==

== ENCOUNTER 2024-07-27 14:18 | Outpatient (AMB) | payer OTHER, SELFPAY ==
--- NOTE | 2024-07-27 14:17 | A.OFFVIS_ITS ---
Intake Visit Reasons: US follow up Allergies SEASONAL ALLERGIES Allergy (Mild, Uncoded 02/24/24 08:31) ITCHY EYES Seasonal allergies in the summ Allergy (Unknown, Uncoded 02/24/24 08:31) Dry Eye Medication List - Last Reconciled 07/27/24 by Sherri Loomis CNM ferrous sulfate 325 mg PO DAILY 90 days minoxidil 1.25 mg (1/2 x 2.5 mg) PO DAILY 90 days omeprazole 20 mg PO DAILY HPI HPI US follow up: Details: This is a tele visit to review patient's ultrasound was done last February 14. That ultrasound had ordered as follow-up to her previously reviewed ultrasound from January of 2023 that showed a small fibroid possibly thickened endometrium that might be obscuring polyps.. The ultrasound done in January of 2024 showed 2 polyps and also the fibroid that was seen in the 1st ultrasound had enlarged.. 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 She is not on any method of control but if she is sexually active she uses condoms she is not sexually active at the moment.. Additionally she had had an abnormal Pap smear with positive HPV in January of 2023 and that was due to be repeated last January of 2024 but because she had her period and needed to reschedule and then there were other various rescheduled that happened she has not been seen since then. She now has an appointment for an annual exam Pap in this coming September but we will see if we can move that up. I reviewed all of the above with her and also I reviewed her previous H and H which was improved from prior ones, additionally I checked to see if she had had any recent fasting glucoses and she did have to slightly elevated fasting glucoses in 2022 and 2023. Patient states she is always kind of struggled with her weight. She does not think her next primary care visit is till the summer. Discussed some of the newer augmentations to weight loss that can be of help especially if somebody has pre diabetes and suggested she may want to discuss these issues with her primary. We will see if we can move up her annual exam and Pap smear to a closer date as it is already later than intended, and then thereafter she would probably need to see aircraft stress analyst for evaluation of the polyps and any discussion of fibroids if necessary. 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 Patient Tobacco Use Status: Never used Tobacco e-Cigarette/Vaping Use: Never Used service: No Current occupational status: employed Cognitive needs: No Hearing needs: No Vision needs: Yes (contacts) Female Reproductive History Menstrual Duration of menses: 3-5 days Date of last menstrual period: 07/22/24 Telehealth Telehealth Telehealth Platform: Telephone Location of provider rendering services: practice address Location of patient: address on file Patient Identification confirmed using: Name, : Yes Telehealth method: video Patient verbally consented to treatment: Yes Patient verbally consented to billing insurance company: Yes Patient informed of any privacy concerns related to visit: Yes Minutes spent on Phone/Video with Pt.: 14 Results Reviewed Results Reviewed: [address] [address] Ultrasound Report Signed Patient: Jasmin Cabrera MR#: [id number] : 1990 Acct:[id number] Age/Sex: 34 / F ADM Date: 02/16/24 Loc: HO.US Attending Dr: Sherri Loomis CNM Ordering Physician: Sherri Loomis CNM Date of Service: 02/16/24 Procedure(s): US pelvic and transvaginal Accession Number(s): [id number] cc: Jeanette Rueda MD; Sherri Loomis CNM~ EXAMINATION: US PELVIS CLINICAL INFORMATION: Excessive menses, last menstrual period January 25, 2024. COMPARISON: None available. TECHNIQUE: January 31, 2023. FINDINGS: The uterus is anteverted and measures 9.2 x 4.2 x 6.1 cm. 5.3 x 4.1 x 4.1 cm fibroid, previously 2.5 x 2.0 x 2.6 cm. 1.8 x 1.9 x 1.8 cm fibroid identified on the prior exam is not appreciated on the current exam. Nabothian cysts. Endometrial thickness of 15 mm. Possible 2.0 x 1.0 x 0.9 cm endometrial polyp. Right ovary measures 3.2 x 2.5 x 2.1 cm, volume 8.9 mL. Left ovary measures 2.9 x 2.4 x 2.3 cm, volume 8.3 mL. Bilateral ovaries demonstrate multiple follicles. No significant free fluid. US/US pelvic and transvaginal IMPRESSION: 1. Possible 2.0 cm endometrial polyp. 2. Endometrial thickness of 15 mm. 3. Dominant 5.3 cm uterine mass characteristic of a fibroid. Previous exam demonstrated 2.6 cm and 1.9 cm fibroids. Dictated By: Emily Firas MD Signed By: <Electronically signed by Emily Frias MD in OV> 03/12/24 1056 DD/ 1632 TD/TT: Ammonia Solution Preparer: Patient: Jasmin Cabrera MR#: [id number] : 1990 Acct:[id number] Age/Sex: 33 / F ADM Date: 01/31/23 Loc: . Attending Dr: Sherri Loomis CNM Ordering Physician: Sherri Loomis CNM Date of Service: 01/31/23 Procedure(s): US pelvic and transvaginal Accession Number(s): [id number] cc: BaySherri aleman CNM~ EXAMINATION: US PELVIS COMPLETE CLINICAL INFORMATION: Hirsutism COMPARISON: None TECHNIQUE: Transabdominal and transvaginal imaging was performed. FINDINGS: The uterus is of normal size and echogenicity measuring 8.5 x 5.0 x 6.4 cm. A thickened and heterogeneous endometrium measuring 1.6 cm. Nabothian cysts in the cervix. A 2.5 x 2.0 x 2.6 cm pedunculated myoma off the anterior body of uterus. A 1.8 x 1.8 x 1.9 cm submucosal myoma with a less than 50% submucosal component along the anterior body of uterus. The right ovary is of normal size and echogenicity. The right measures 3.9 x 2.5 x 1.9 cm for a volume of 9.7 mL. The left ovary is mildly enlarged which can be accounted for by a physiologic dominant follicle (no follow-up imaging recommended) and measures 3.8 x 2.4 x 2.7 cm for a volume of 12.9 mL. There is no pelvic free fluid. US/US pelvic and transvaginal IMPRESSION: 1. The left ovary is mildly enlarged entering 12.9 cm in volume which can be accounted for by a physiologic dominant follicle (no follow-up imaging recommended). The right ovary is normal in size. 2. A 1.6 cm thickened and heterogeneous endometrium seen underlying lesion such as polyps difficult to exclude. 3. Myomatous uterus with a 2.6 cm pedunculated myoma and a 1.9 cm submucosal myoma with a less than 60% submucosal component. Dictated By: Courtney Moore MD Signed By: <Electronically signed by Cuortney Moore MD in OV> 02/05/231656 DD/ 53 TD/TT: Ammonia Solution Preparer: Name: Jasmin Cabrera Age/Sex: 32/F Attending: Sherri Loomis CNM : 1990 Submitted by: Sherri Loomis CNM Copies to: Jeanette Rueda MD MR #: [id number] Status: DEP REF Collected: 01/19/23 Location: [facility] Received: 01/20/23 Interpretation Satisfactory for evaluation. Negative for intraepithelial lesion or malignancy. Coccobacilli consistent with shift in vaginal wesley. Moderate inflammation. HPV mRNA E6/E7: DETECTED This assay detects E6/E7 viral messenger RNA (mRNA) from 14 high-risk HPV types (16, 18, 31, 33, 35, 39, 45, 51, 52, 56, 58, 59, 66, 68) HPV Type 16 RNA: Not Detected HPV Type 18/45 RNA: Not Detected HPV testing performed by [facility], [place], [place]. See reference laboratory portion of the EMR for entire report. Clinical Information LMP: 01/10/23 Previous PAP test: First pap Material Received ThinPrep-Cervical Copies To Jeanette Rueda MD [facility] [facility] [address] [place] [id number] [place] [address] Electronically Signed By: Francisco Javier Reyna MD 02/07/23 1353 Patient: Jasmin Cabrera Age/Sex: 32/F MR#: [id number] Page 1 of 2 Gynecologic Cytology [id number] The Pap Test is a screening procedure with the inherent possibility of both false negative and false positive results. Results should be interpreted in the context of historic and current clinical findings. Reliability of the Pap Test is enhanced by performing the test on a regular repetitive basis. Patient: Jasmin Cabrera Age/Sex: 32/F MR#: [id number] Name: Jasmin Cabrera Age/Sex: 34/F : 1990 Unit#: [id number] Attend Dr: Jeanette Rueda MD Re04/11/24 Status: DEP REF Location: [facility]10L Disch: SPEC : [id number] JULIA: 04/11/24 STATUS: COMP REQ : [id number] RECD: 04/11/24-[address]: Jeanette Rueda MD COMP: 04/13/24 ENTERED: 04/11/[address]: ORDERED: Hgb Electro Test Result Flag Reference RBC 5.06 3.80-5.10 Million/uL Hemoglobin 11.9 11.7-15.5 g/dL Hematocrit 37.7 35.0-45.0 % MCV 74.5 L 80.0-100.0 fL MCH 23.5 L 27.0-33.0 pg RDW 14.6 11.0-15.0 % Hemoglobin A 97.7 >96.0 % Hemoglobin A2 2.3 2.0-3.2 % Hemoglobin F <1.0 <2.0 % Hemoglobin S Test not performed Hemoglobin C Test not performed Hemoglobin E Test not performed Other HGB Test not performed Other HGB 2 Test not performed HGB Interp. SEE NOTE Microcytosis and normal hemoglobin pattern may be seen in iron deficiency or alpha thalassemia. If iron deficiency is corrected / ruled out but MCV remains in low range molecular testing should be considered for genetic counselling reasons ([facility] Test Code 48507). THIS TEST WAS PERFORMED AT: [facility] [address] [id number] DANITA GUERRA MD Name: Jasmin Cabrera Age/Sex: 34/F : 1990 Unit#: [id number] Attend Dr: Jeanette Rueda MD Re02/24/24 Status: DEP [facility] Disch: SPEC : [id number] JULIA: 02/24/24 STATUS: COMP REQ : [id number] RECD: 02/24/24-[address]: Jeanette Rueda MD COMP: 02/24/24 ENTERED: 02/24/[address] [facility] [address]: ORDERED: CMP Fast, IRON PROF, Lipid Panel, Vitamin D 25-OH, TSH Rflx Test Result Flag Reference Sodium 139 135-145 mmol/L Potassium 3.9 3.3-5.1 mmol/L CL 107 96-108 mmol/L CO2 24 22-29 mmol/L Gap 12 12-20 BUN 10 9-16 mg/dL Creat 0.72 0.5-1.4 mg/dL EGFR > 60 NOTE: For -Brazilian individuals, multiply the result by 1.210. Chronic Kidney Disease: Estimated GFR < 60 mL/min/1.73m2 Severe Kidney Disease: Estimated GFR < 15 mL/min/1.73m2 FBS 105 H 60-99 mg/dL A fasting glucose from 100-125 mg/dl is considered impaired (pre-diabetes). CA 9.5 8.4-10.2 mg/dL Iron 34 30-160 mcg/dL TIBC 276 228-428 mcg/dL Saturation 12 L 15-50 % UIBC 242 ug/dL Total Bili 0.3 0.0-1.0 mg/dL AST (GOT) 20 5-31 U/L ALT (GPT) 40 H 0-31 U/L Protein, Total 7.6 6.5-8.0 g/dL Alb 4.0 3.5-5.0 g/dL Triglyceride 207 H <150 mg/dL Desirable Triglyceride: less than 150 mg/dL Borderline High Triglyceride 150-199 mg/dL High Triglyceride: 200-499 mg/dL Very High Triglyceride: greater than or equal to 5OO mg/dL Cholesterol 209 H <200 mg/dL Desirable Cholesterol: less than 200 mg/dL Borderline High Cholesterol: 200-239 mg/dL High Cholesterol: greater than 239 mg/dL LDL Calculated 125 H <100 mg/dL Desirable LDL: less than 100 mg/dL Near Optimal/Above Optimal LDL: 110-129 mg/dL Borderline High LDL: 130-159 mg/dL High LDL: 160-189 mg/dL Very High LDL: greater than or equal to 190 mg/dL HDL 43 >40 mg/dL Desirable HDL: greater than 40 mg/dL Note: This HDL assay may give artificially low results in patients with liver disease. Alk Phos 56 39-117 U/L Vit D 25-OH Tot 35.3 >30 ng/mL Health Based Reference Values* < 20 ng/mL Deficient 20-30 ng/mL Insufficient > 30 ng/mL Sufficient *Luz Maria WILKES. N Engl J Med. 2007;357:266-280 Care must be taken in interpreting Vitamin D results from different laboratories and methodologies. Published data demonstrated that results from patients undergoing hemodialysis may show a negative bias when tested with various automated 25-OH vitamin D assays when compared to LC-MS/MS. When testing samples from patients whose predominant form of Vitamin D is Vitamin D2, such as patients receiving Vitamin D2 supplementation, results that are subtherapeutic should be confirmed with another method such as LC-MS/MS. TSH 1.47 0.32-4.0 uIU/mL Assessment & Plan Assessment & Plan (1) Hyperglycemia: Comment: Elevated FBSs noted and discussed-mo'b,07/27/24. Code(s): R73.9 - Hyperglycemia, unspecified Category: Medical (2) Cervical cancer screening: Comment: HPV is positive; Pap= negative; f/u 1 yr. Code(s): Z12.4 - Encounter for screening for malignant neoplasm of cervix Category: Medical (3) Menorrhagia with regular cycle: Code(s): N92.0 - Excessive and frequent menstruation with regular cycle Category: Medical (4) Fibroids: Code(s): D21.9 - Benign neoplasm of connective and other soft tissue, unspecified Category: Medical (5) Endometrial polyp: Comment: Noted on ultrasound of 2023 see also ultrasound of 2022. Scheduled visits were rearranged. Will refer to aircraft stress analyst, after upcoming visit. Code(s): N84.0 - Polyp of corpus uteri Category: Medical (6) Overweight: Code(s): E66.3 - Overweight Category: Medical (7) Anemia: Comment: Iron deficiency secondary to menorrhagia, last H&H improved, we will re-evaluate at annual Code(s): D64.9 - Anemia, unspecified Category: Medical Plan This is a tele visit to review patient's ultrasound was done last February 14. That ultrasound had ordered as follow-up to her previously reviewed ultrasound from January of 2023 that showed a small fibroid possibly thickened endometrium that might be obscuring polyps.. The ultrasound done in January of 2024 showed 2 polyps and also the fibroid that was seen in the 1st ultrasound had enlarged.. 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 She is not on any method of control but if she is sexually active she uses condoms she is not sexually active at the moment.. Additionally she had had an abnormal Pap smear with positive HPV in January of 2023 and that was due to be repeated last January of 2024 but because she had her period and needed to reschedule and then there were other various rescheduled that happened she has not been seen since then. She now has an appointment for an annual exam Pap in this coming September but we will see if we can move that up. I reviewed all of the above with her and also I reviewed her previous H and H which was improved from prior ones, additionally I checked to see if she had had any recent fasting glucoses and she did have to slightly elevated fasting glucoses in 2022 and 2023. Patient states she is always kind of struggled with her weight. She does not think her next primary care visit is till the summer. Discussed some of the newer augmentations to weight loss that can be of help especially if somebody has pre diabetes and suggested she may want to discuss these issues with her primary. We will see if we can move up her annual exam and Pap smear to a closer date as it is already later than intended, and then thereafter she would probably need to see aircraft stress analyst for evaluation of the polyps and any discussion of fibroids if necessary. Consider PCOS workup at annual exam as well. Coding Level of Care Code Tele Est Pt Level 3 (33706) Diagnoses Hyperglycemia R73.9 Cervical cancer screening Z12.4 Menorrhagia with regular cycle N92.0 Fibroids D21.9 Endometrial polyp N84.0 Overweight E66.3 Anemia D64.9
== END 2024-07-27 16:06 | disposition home or self-care (01) ==
LOC: HO.HWSM 14:18
PROVIDERS: PCP Internal Medicine; Visit Provider Advanced Practice Midwife
DX: R73.9 Hyperglycemia, unspecified (principal); Z12.4 Encounter for screening for malignant neoplasm of cervix; N92.0 Excessive and frequent menstruation with regular cycle; D21.9 Benign neoplasm of connective and other soft tissue, unspecified; N84.0 Polyp of corpus uteri; E66.3 Overweight; D64.9 Anemia, unspecified
CPT/HCPCS: 99213

== ENCOUNTER → 2024-07-27 14:18 | Outpatient (BNVA) | payer OTHER, SELFPAY | PROVIDERS: PCP Internal Medicine; Visit Provider Advanced Practice Midwife ==

== ENCOUNTER 2024-10-03 07:45 | Outpatient (REF) | payer OTHER, SELFPAY | END 2024-10-03 07:46 | disposition home or self-care (01) | LOC: HO.LAB 07:45 | PROVIDERS: PCP Internal Medicine; Visit Provider Advanced Practice Midwife | DX: Z13.89 Encounter for screening for other disorder (principal) ==

== ENCOUNTER 2024-10-03 07:45 | Outpatient (AMB) | payer OTHER, SELFPAY ==
--- NOTE | 2024-10-03 07:58 | MHC.OFFVIS ---
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 History of hirsutism, has a dermatology follow up for her nevi. Regular monthly menses 4-5d, HMB x3d. Currently is not sexually active. She denies vaginal itching and irritation. STI screening offered; she accepts. Hx. of BV symptoms often soon after treatment. She denies any contraindications to control such as: migraines with aura, history of DVT or pulmonary emboli, high blood pressure, liver disease, thrombolic disorders, breast cancer, Lupus, +GABRIELA, or smoking.any pelvic pain. She tries to eat healthy and stays active with exercise daily walking. Denies family history of breast, ovarian cancer. FH colon cancer. Last pap smear 2022, HPV positive. [facility] Medical History (Updated 10/03/24 @ 11:29 by Xiomy Rivera CNM) Abnormal Pap smear of cervix Surgical History No pertinent past surgical history Family History Mother HTN (hypertension) Maternal Uncle Colon cancer Social History Household Members Other:: single Housing: House Patient Tobacco Use Status: Never used Tobacco e-Cigarette/Vaping Use: Never Used service: No Current occupational status: employed Current occupation: [employer] Cognitive needs: No Hearing needs: No Vision needs: Yes (contacts) Female Reproductive History Menstrual Duration of menses: 3-5 days Date of last menstrual period: 09/17/24 control method: none Total pregnancies: 0 Date of last pap smear: 01/19/23 (neg pap +hpv) Review of Systems Const All systems reviewed & are unremarkable except as noted in HPI and below Reports as per HPI Eyes Reports no additional complaints ENT Reports no additional complaints Card Reports no additional complaints Resp Reports no additional complaints GI Reports as per HPI and Reports no additional complaints Reports as per HPI Musc Reports no additional complaints Skin/Breast Reports as per HPI Neuro Reports no additional complaints Psych Reports no additional complaints Endo Reports no additional complaints Asher/Lymph Reports no additional complaints Aller/Immun Reports no additional complaints Physical Exam Vital Signs: Last Vital Signs BP 118/76 10/03/24 08:02 BMI result Body Mass Index 35.5 Const General: cooperative, healthy appearing, no acute distress, well developed and alert Orientation/consciousness: patient oriented x3 HEENT Head: Yes normal to inspection Eyes General: appearance normal, both eyes and all related structures Neck Neck: Yes normal visual inspection Thyroid: Thyroid normal Chest Chest palpation & inspection: normal inspection of the chest and other (no puckering, dimpling, peau de orange, retraction, discharge, masses) Breast/axilla inspection: normal inspection of the breasts Breast/axilla palpation: normal palpation of the breasts Resp Effort & Inspection: normal respiratory effort GI Inspection: Yes normal to inspection Palpation (GI): Soft to palpation Rectal Exam - Female: deferred General: Yes bladder normal to palpation External Female Exam: normal external appearance and normal appearance of the urethra Speculum Exam - Vagina: normal appearance of the vagina, normal palpation and normal vaginal discharge Speculum Exam - Cervix: normal appearance of the cervix and normal palpation Bimanual exam- vagina & uterus: normal bimanual exam, normal palpation, uterine size normal, bladder normal to palpation, normal palpation and non-tender Bimanual Exam- Adnexa, other: no masses Skin Other: Chin hair-shaven General skin exam: no rashes or lesions noted Rashes: no rashes Neuro General: patient oriented x3 Cognition (Neuro): normal cognition Extrem General: Yes normal to inspection Psych Attitude: cooperative Thought process: Normal thought process present Results Reviewed Results Reviewed: [address] [address] Ultrasound Report Signed Patient: Jasmin Cabrera MR#: [id number] : 1990 Acct:[id number] Age/Sex: 34 / F ADM Date: 02/16/24 Loc: HO.US Attending Dr: Sherri Loomis CNM Ordering Physician: Sherri Loomis CNM Date of Service: 02/16/24 Procedure(s): US pelvic and transvaginal Accession Number(s): [id number] cc: Jeanette Rueda MD; Sherri Loomis CNM~ EXAMINATION: US PELVIS CLINICAL INFORMATION: Excessive menses, last menstrual period January 25, 2024. COMPARISON: None available. TECHNIQUE: January 31, 2023. FINDINGS: The uterus is anteverted and measures 9.2 x 4.2 x 6.1 cm. 5.3 x 4.1 x 4.1 cm fibroid, previously 2.5 x 2.0 x 2.6 cm. 1.8 x 1.9 x 1.8 cm fibroid identified on the prior exam is not appreciated on the current exam. Nabothian cysts. Endometrial thickness of 15 mm. Possible 2.0 x 1.0 x 0.9 cm endometrial polyp. Right ovary measures 3.2 x 2.5 x 2.1 cm, volume 8.9 mL. Left ovary measures 2.9 x 2.4 x 2.3 cm, volume 8.3 mL. Bilateral ovaries demonstrate multiple follicles. No significant free fluid. US/US pelvic and transvaginal IMPRESSION: 1. Possible 2.0 cm endometrial polyp. 2. Endometrial thickness of 15 mm. 3. Dominant 5.3 cm uterine mass characteristic of a fibroid. Previous exam demonstrated 2.6 cm and 1.9 cm fibroids. Dictated By: Emily Frias MD Signed By: <Electronically signed by Emily Frias MD in OV> 03/12/24 1056 DD/ 1632 TD/TT: Regional Sales Leader: Assessment & Plan Assessment & Plan (1) Well woman exam with routine gynecological exam: Code(s): Z01.419 - Encounter for gynecological examination (general) (routine) without abnormal findings Category: Medical (2) Fibroids: Code(s): D21.9 - Benign neoplasm of connective and other soft tissue, unspecified Category: Medical (3) Heavy menstrual bleeding: Code(s): N92.0 - Excessive and frequent menstruation with regular cycle Qualifiers: Menorrhagia type: with regular cycle Qualified Code(s): N92.0 - Excessive and frequent menstruation with regular cycle Plan: Discussed workup for heavy menstrual bleeding. Pelvic ultrasound ordered. Advised to follow up in person for test results. (4) Endometrial polyp: Code(s): N84.0 - Polyp of corpus uteri Category: Medical Plan: Reviewed ultrasound findings and discussed plan of care for endometrial polyp evaluation. Advised consult with Dr. Dimas for hysteroscopy. (5) Abnormal Pap smear of cervix: Comment: History of HPV positive Code(s): R87.619 - Unspecified abnormal cytological findings in specimens from cervix uteri Category: Medical Qualifiers: Abnormal Pap type: other Qualified Code(s): R87.618 - Other abnormal cytological findings on specimens from cervix uteri Plan: Pap smear obtained. Discuss ASCCP guidelines. Plan Discussed: Current recommendations for pap smears per ASCCP guidelines. Repeat Pap obtained. GC chlamydia and BV panel obtained. Await results for plan of care. Breast awareness and periodic breast exams. Maintain a healthy lifestyle including a well balanced diet and routine exercise. Use condoms for STI and prevention. Advised to speak to project leader about her hirsutism. Follow up with PCP regarding blood sugars other labs. Follow up with Dermatology to include a discussion of her hirsutism treatment options. Consider control as another option. Patient verbalizes understanding and agrees to the plan of care. She was given opportunity to ask questions and all questions were answered to the best of my ability. RTO in one year for annual casino cage cashier examination. Total time I personally spent on visit and management today: ?20 minutes. Time spent included review of pertinent office notes in the electronic health record; review of laboratory and imaging results; review of personal family medical history; discussing diagnosis and plan of care with the patient; documenting the encounter in the EMR. This note is constructed using voice recognition software. While every effort has been made to ensure accuracy, window display designer errors may have been included. Orders: Orders Bacterial Vaginosis Panel Today D21.9 - Benign neoplasm of connective and other soft tissue, unspecified, Z20.2 - Contact with and (suspected) exposure to infections with a predominantly sexual mode of transmission CT NG by PCR Today D21.9 - Benign neoplasm of connective and other soft tissue, unspecified, Z20.2 - Contact with and (suspected) exposure to infections with a predominantly sexual mode of transmission Pap Smear Today Z01.419 - Encounter for gynecological examination (general) (routine) without abnormal findings, Z12.4 - Encounter for screening for malignant neoplasm of cervix HPV High risk Today D21.9 - Benign neoplasm of connective and other soft tissue, unspecified, Z01.419 - Encounter for gynecological examination (general) (routine) without abnormal findings, Z12.4 - Encounter for screening for malignant neoplasm of cervix US pelvic and transvaginal Today D21.9 - Benign neoplasm of connective and other soft tissue, unspecified Coding Level of Care Code Est Pt Level 3 (11616) Est Pt Prev Care 18-39y(90735) Diagnoses Well woman exam with routine gynecological exam Z01.419 Fibroids D21.9 Menorrhagia with regular cycle N92.0 Menorrhagia type: with regular cycle Endometrial polyp N84.0 Other abnormal cytological finding of specimen from cervix R87.618 Abnormal Pap type: other
[2024-10-03 08:02] VITALS: BP 118/76; BMI 35.5
== END 2024-10-03 09:29 | disposition home or self-care (01) ==
LOC: HO.HWS 07:45
PROVIDERS: PCP Internal Medicine; Visit Provider Advanced Practice Midwife
DX: Z01.419 Encounter for gynecological examination (general) (routine) without abnormal findings (principal); D25.9 Leiomyoma of uterus, unspecified; N92.0 Excessive and frequent menstruation with regular cycle; N84.0 Polyp of corpus uteri; R87.618 Other abnormal cytological findings on specimens from cervix uteri
CPT/HCPCS: 99213; 99395; 99459

== ENCOUNTER 2024-10-03 08:31 | Outpatient (REF) | payer OTHER, SELFPAY ==
[2024-10-04 05:44] LABS: CT PCR NOT DETECTED (Not Detect.); NG PCR NOT DETECTED (Not Detect.)
[2024-10-04 09:24] LABS: Bacterial Vaginosis PCR NEGATIVE (Negative); Candida Group PCR NOT DETECTED (Not Detect); Candida glab krusei PCR NOT DETECTED (Not Detect); Trichomonas vaginalis PCR NOT DETECTED (Not Detect)
[2024-10-08 14:10] LABS: HPV Genotype 16 Negative (Negative); HPV Genotype 18 Negative (Negative); HPV High Risk Negative (Negative)
== END 2024-10-03 08:32 | disposition home or self-care (01) ==
LOC: HO.LNP 08:31
PROVIDERS: Visit Provider Advanced Practice Midwife
DX: Z01.419 Encounter for gynecological examination (general) (routine) without abnormal findings (principal); D21.9 Benign neoplasm of connective and other soft tissue, unspecified; Z20.2 Contact with and (suspected) exposure to infections with a predominantly sexual mode of transmission
CPT/HCPCS: 81515; 87491; 87591; 87626; 88175

== ENCOUNTER 2024-10-23 08:37 | Outpatient (AMB) | payer OTHER, SELFPAY ==
--- NOTE | 2024-10-23 08:40 | MHC.OFFVIS ---
Intake Visit Reasons: pre op Redeye Gunner: Redeye Gunner Present (Gertrude) Accompanied by: Self / Same As Patient Allergies SEASONAL ALLERGIES Allergy (Mild, Uncoded 10/03/24 08:02) ITCHY EYES Seasonal allergies in the summ Allergy (Unknown, Uncoded 10/03/24 08:02) Dry Eye Is last menstrual period known: Yes Last menstrual period: 05/22/20 Post menopausal: No Patient : No Do you need a note to return to daycare/school/sports/work: Yes (for surgery on tuesday) HPI Comments Details: Presenting referred from Xiomy Rivera regarding abnormal uterine bleeding. The following workup was done so far: H&H in 03/2411.9/37.7 TSH within normal GC/CT negative Co testing in 10/16 still pending Pelvic ultrasound showed the following: The uterus is anteverted and measures 9.2 x 4.2 x 6.1 cm. 5.3 x 4.1 x 4.1 cm fibroid, previously 2.5 x 2.0 x 2.6 cm. 1.8 x 1.9 x 1.8 cm fibroid identified on the prior exam is not appreciated on the current exam. Nabothian cysts. Endometrial thickness of 15 mm. Possible 2.0 x 1.0 x 0.9 cm endometrial polyp. Right ovary measures 3.2 x 2.5 x 2.1 cm, volume 8.9 mL. Left ovary measures 2.9 x 2.4 x 2.3 cm, volume 8.3 mL. Bilateral ovaries demonstrate multiple follicles. No significant free fluid. 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 Cognitive needs: No Hearing needs: No Vision needs: Yes (contacts) Female Reproductive History Menstrual Date of last menstrual period: 05/22/20 Total pregnancies: 2 Full term: 2 Review of Systems Const All systems reviewed & are unremarkable except as noted in HPI and below Reports as per HPI and Reports no additional complaints Card Reports as per HPI and Reports no additional complaints Resp Reports as per HPI and Reports no additional complaints GI Reports no additional complaints Reports no additional complaints Physical Exam Const General: cooperative, healthy appearing and comfortable Resp Effort & Inspection: normal respiratory effort Auscultation: clear to auscultation bilaterally Percussion: percussion normal Cardio Palpation: normal PMI Rate: regular rate Rhythm: regular rhythm Heart sounds: no murmurs and no rubs Peripheral pulses: Peripheral pulses 2+ throughout GI Inspection: Yes normal to inspection Palpation (GI): Soft to palpation, nontender, no guarding, not rigid and No hepatosplenomegaly present Percussion: Yes normal to percussion Auscultation: normal bowel sounds Rectal Exam - Female: deferred Assessment & Plan Assessment & Plan (1) Abnormal uterine bleeding (AUB): Comment: Endometrial polyp on pelvic ultrasound Code(s): N93.9 - Abnormal uterine and vaginal bleeding, unspecified Category: Medical Plan: Discussed with the patient the results of the pelvic ultrasound showing endometrial polyp, recommended hysteroscopy D&C possible polypectomy/myomectomy. Discussed with the patient the procedure , all benefits and risks including but not limited to inability to complete the procedure , insufficient endometrial tissue for a complete evaluation of the endometrial cavity , bleeding, infection, possible need for blood transfusion with all its risk ( HIV,syphilis, Hepatitis, anaphylaxis shock, others..), injury to bladder, rectum, possible need for laparoscopy/laparotomy or hysterectomy. The patient verbalized understanding and signed the consent. Instructions given the patient to stay NPO after midnight the day prior to the procedure and to discontinue Tirzepatide for 1 week prior to surgery and to schedule a 2 week postoperative appointment (2) Uterine myoma: Code(s): D25.9 - Leiomyoma of uterus, unspecified Category: Medical Plan: Discussed with the patient the findings on pelvic ultrasound & the risk of myosarcoma; in addition reviewed with the patient that malignancy and pre malignancy cannot be ruled out without hysterectomy for pathological evaluation ; furthermore, explained to the patient the limitation of pelvic ultrasound and endometrial biopsy in the setting. Discussed with the patient the typical symptoms that are caused by myomas including but not limited to pelvic pain, pressure symptoms, abnormal uterine bleeding. In addition discussed with the patient options of treatment for myomas including: Serial ultrasounds periodically to follow-up on the size of the myoma while targeting the treatment against fibroids related symptoms ( control pills, Mirena IUD, progesterone treatment, GnRH agonist/antagonist, uterine artery embolization or endometrial ablation) versus surgical treatment including hysterectomy and or myomectomy. All pros and cons, risks and benefits of all options were discussed with the patient. The patient understands that delay in surgical treatment in case of myosarcoma can affect her prognosis, after further discussion, the patient decided to think about it and get back to us next visit (3) Abnormal Pap smear of cervix: Comment: History of HPV positive Code(s): R87.619 - Unspecified abnormal cytological findings in specimens from cervix uteri Category: Medical Qualifiers: Abnormal Pap type: other Qualified Code(s): R87.618 - Other abnormal cytological findings on specimens from cervix uteri Plan: Given the history of positive HPV, will wait for the cytology results, if abnormal will proceed with colpo/ biopsy/ECC and make sure hysteroscopy is scheduled afterwards in case the patient has a indication for any additional procedure Coding Level of Care Code Est Pt Level 3 (66804) Diagnoses Abnormal uterine bleeding (AUB) N93.9 Uterine myoma D25.9 Other abnormal cytological finding of specimen from cervix R87.618 Abnormal Pap type: other
== END 2024-10-23 09:21 | disposition home or self-care (01) ==
LOC: HO.HWS 08:37
PROVIDERS: PCP Internal Medicine; Visit Provider Obstetrics & Gynecology
DX: N93.9 Abnormal uterine and vaginal bleeding, unspecified (principal); D25.9 Leiomyoma of uterus, unspecified; R87.618 Other abnormal cytological findings on specimens from cervix uteri
CPT/HCPCS: 99213

== ENCOUNTER → 2024-10-23 08:37 | Outpatient (BNVA) | payer OTHER, SELFPAY | PROVIDERS: PCP Internal Medicine; Visit Provider Obstetrics & Gynecology ==

== ENCOUNTER 2024-11-06 10:50 | Outpatient (REF) | payer OTHER, SELFPAY ==
--- NOTE | ~2024-11-06 | US_ITS ---
EXAMINATION: US PELVIS TRANSABDOMINAL AND TRANSVAGINAL HISTORY: D21.9 - Benign neoplasm of connective and other soft tissue, unspecified COMPARISON: Comparison is made with the prior examination dated 02/16/2024. TECHNIQUE: Transabdominal and endovaginal real-time 2D kingsley-scale ultrasound was performed. FINDINGS: Uterus: The uterus is normal in size, measuring 8.6 x 4.5 x 5.4 cm. Myometrium has a normal echotexture. Multiple fibroids are again noted including a right fundal fibroid measuring 4.8 x 4.6 x 4.8 cm (previously 5.3 x 4.1 x 4.1 cm), a left-sided fibroid measuring 2.0 x 2.3 x 1.8 cm (previously 2.2 x 2.2 x 1.7 cm), and a 2.4 x 3.2 x 1.9 cm left-sided fibroid which was not identified previously. Endometrium: The endometrial stripe measures 12 mm in thickness. Nabothian cysts are seen in the cervix. There is minimal fluid in the endocervical canal. Right ovary: The right ovary measures 2.2 x 2.1 x 1.2 cm. The right ovary is normal in size and echotexture. Left ovary: The left ovary measures 3.4 x 1.8 x 3.2 cm. The left ovary is normal in size and echotexture. There is a 2 mm calcification. Pelvic fluid: none. US/US pelvic and transvaginal IMPRESSION: Fibroid uterus as described. Electronically signed by: Dewey Carnes MD 11/06/2024 02:59 PM EDT
== END 2024-11-06 10:51 | disposition home or self-care (01) ==
LOC: HO.US 10:50
PROVIDERS: PCP Internal Medicine; Visit Provider Advanced Practice Midwife
DX: D21.9 Benign neoplasm of connective and other soft tissue, unspecified (principal)
CPT/HCPCS: 76830; 76856

== ENCOUNTER → 2024-11-06 10:53 | Outpatient (BNV) | payer OTHER, SELFPAY | PROVIDERS: PCP Internal Medicine; Visit Provider Radiology Diagnostic Radiology | DX: D25.9 Leiomyoma of uterus, unspecified (principal) | CPT/HCPCS: 76830; 76856 ==

== ENCOUNTER 2024-11-13 12:50 | Outpatient (AMB) | payer OTHER, SELFPAY ==
--- NOTE | 2024-11-13 12:50 | MHC.OFFVIS ---
Intake Visit Reasons: TV US results Intake Note: cell #[phone] Allergies SEASONAL ALLERGIES Allergy (Mild, Uncoded 10/03/24 08:02) ITCHY EYES Seasonal allergies in the summ Allergy (Unknown, Uncoded 10/03/24 08:02) Dry Eye Is last menstrual period known: Yes Last menstrual period: 10/30/24 HPI Comments Details: Tele Health Visit Total time I personally spent on visit and management today: 14 minutes. Time spent included review of pertinent office notes in the electronic health record; review of laboratory and imaging results; review of personal family medical history; discussing diagnosis and plan of care with the patient; documenting the encounter in the EMR. Patient presents to discuss: Ultrasound findings history of fibroids. Heavy menstrual, has a hysteroscopy appointment scheduled in November with Dr. Dimas. [facility] Medical History Abnormal Pap smear of cervix Surgical History No pertinent past surgical history Family History Mother HTN (hypertension) Maternal Uncle Colon cancer Social History Household Members Other:: single Housing: House Patient Tobacco Use Status: Never used Tobacco e-Cigarette/Vaping Use: Never Used service: No Current occupational status: employed Current occupation: [employer] Cognitive needs: No Hearing needs: No Vision needs: Yes (contacts) Female Reproductive History Menstrual Date of last menstrual period: 10/30/24 Telehealth Telehealth Telehealth Platform: vChatter Location of provider rendering services: practice address Location of patient: other Patient Identification confirmed using: Name, : Yes Telehealth method: video Patient verbally consented to treatment: Yes Patient verbally consented to billing insurance company: Yes Patient informed of any privacy concerns related to visit: Yes Results Reviewed Results Reviewed: [address] [address] Ultrasound Report Signed Patient: Jasmin Cabrera MR#: [id number] : 1990 Acct:[id number] Age/Sex: 34 / F ADM Date: 11/06/24 Loc: HO.US Attending Dr: Sherri Loomis CNM Ordering Physician: Xiomy Rivera CNM Date of Service: 11/06/24 Procedure(s): US pelvic and transvaginal Accession Number(s): [id number] cc: Jeanette Rueda MD; Xiomy Rivera CNM~ EXAMINATION: US PELVIS TRANSABDOMINAL AND TRANSVAGINAL HISTORY: D21.9 - Benign neoplasm of connective and other soft tissue, unspecified COMPARISON: Comparison is made with the prior examination dated 02/16/2024. TECHNIQUE: Transabdominal and endovaginal real-time 2D kingsley-scale ultrasound was performed. FINDINGS: Uterus: The uterus is normal in size, measuring 8.6 x 4.5 x 5.4 cm. Myometrium has a normal echotexture. Multiple fibroids are again noted including a right fundal fibroid measuring 4.8 x 4.6 x 4.8 cm (previously 5.3 x 4.1 x 4.1 cm), a left-sided fibroid measuring 2.0 x 2.3 x 1.8 cm (previously 2.2 x 2.2 x 1.7 cm), and a 2.4 x 3.2 x 1.9 cm left-sided fibroid which was not identified previously. Endometrium: The endometrial stripe measures 12 mm in thickness. Nabothian cysts are seen in the cervix. There is minimal fluid in the endocervical canal. Right ovary: The right ovary measures 2.2 x 2.1 x 1.2 cm. The right ovary is normal in size and echotexture. Left ovary: The left ovary measures 3.4 x 1.8 x 3.2 cm. The left ovary is normal in size and echotexture. There is a 2 mm calcification. Pelvic fluid: none. US/US pelvic and transvaginal IMPRESSION: Fibroid uterus as described. Electronically signed by: Dewey Carnes MD 11/06/2024 02:59 PM EDT Dictated By: Dewey Carnes MD Signed By: <Electronically signed by Dewey Carnes MD in OV> 04/15/25 1459 DD/ 1109 TD/TT: 11/06/24 1126 Tie Tape Machine Operator: Assessment & Plan Assessment & Plan (1) Fibroids: Code(s): D21.9 - Benign neoplasm of connective and other soft tissue, unspecified Category: Medical Plan: Counseled re: Leiomyoma: common pelvic neoplasm. Differential diagnosis-may include but not limited to- leiomyosarcoma which is a rare uterine sarcoma 3-7/100,000, difficult to distinguish from fibroids on ultrasound from uterine sarcoma's. Unlikely any single test will have a highly positive predictive value. Hysterectomy is not recommended for sole purpose of excluding malignant neoplasm. Consult for surgical exploration, medical treatment, other treatments, verses expectant management, pros and cons, risks and benefits. Expectant management follow up in 6 months, then yearly for stability. Patient prefers to proceed with expectant management. Report any AUB, pelvic pressure, bloating, or pain. Referral to MD if indicated for level of care if indicated. Follow up in office for test results (2) Encounter to discuss test results: Code(s): Z71.2 - Person consulting for explanation of examination or test findings (3) Uterine myoma: Code(s): D25.9 - Leiomyoma of uterus, unspecified Category: Medical Qualifiers: Uterine leiomyoma location: unspecified location Qualified Code(s): D25.9 - Leiomyoma of uterus, unspecified Plan Discussed: Ultrasound findings-multiple fibroids, one new fibroid noted. Follow up monitoring with ultrasound. The patient expressed understanding and agreement with the plan of care. All of her questions and concerns were addressed to the best of my ability. This note is constructed using voice recognition software. While every effort has been made to ensure accuracy, machinist helper marine errors may have been included. Orders: Orders US pelvic and transvaginal 6 Months D25.9 - Leiomyoma of uterus, unspecified Coding Level of Care Code Tele Est Pt Level 2 (08906) Diagnoses Fibroids D21.9 Encounter to discuss test results Z71.2 Uterine leiomyoma, unspecified location D25.9 Uterine leiomyoma location: unspecified location
== END 2024-11-13 13:31 | disposition home or self-care (01) ==
LOC: HO.HWS 12:50
PROVIDERS: PCP Internal Medicine; Visit Provider Advanced Practice Midwife
DX: D25.9 Leiomyoma of uterus, unspecified (principal); Z71.2 Person consulting for explanation of examination or test findings
CPT/HCPCS: 99212

== ENCOUNTER 2024-11-30 05:57 | Day surgery (SDC) | payer OTHER, SELFPAY ==
[2024-11-29 13:02] VITALS: BMI 36.0
[2024-11-30 06:33] VITALS: PULSE 84; RESP 18; TEMP 36.9; O2SAT 98; BMI 35.6
[2024-11-30 06:34] LABS: UPreg QC Valid YES; Urine Pregnancy NEGATIVE (NEGATIVE)
[2024-11-30] MEDS: Lactated Ringers 1,000 ML 100 ML IVCONT (06:40)
--- NOTE | 2024-11-30 07:19 | HO.ANESPROP2 ---
Documented by User: Rosario Swan NP 11/28/24 12:57 HPI - Anesthesia Eval Consult details Narrative: 34yo F for D&C Hysteroscopy possible myomectomy / polypectomy Anesthesia Pre-Procedure Meds Is the patient on any of the following meds?: GLP1/DPP4 PMFSH Active Problems Active Problems: All Active Problems Uterine myoma (Acute) Abnormal uterine bleeding (AUB) (Acute) Endometrial polyp (Acute) Decreased hearing (Acute) Hair loss disorder (Acute) Fibroids (Acute) GERD (gastroesophageal reflux disease) (Acute) Abdominal pain (Acute) Dysplastic nevi (Acute) Menorrhagia with regular cycle (Acute) Hirsutism (Acute) Potential exposure to STD (Acute) Well woman exam with routine gynecological exam (Acute) Obesity, morbid, BMI 40.0-49.9 (Acute) Anemia (Acute) Hyperglycemia (Acute) Overweight (Acute) Normal pelvic exam (Acute) Annual physical exam (Acute) Abnormal Pap smear of cervix (Acute) Past Medical History Medical History (Updated 11/27/24 @ 14:52 by Olga Hanson RN) GERD (gastroesophageal reflux disease) Anemia Abnormal Pap smear of cervix Family History Family History Mother HTN (hypertension) Maternal Uncle Colon cancer Surgical History Surgical History No pertinent past surgical history Social History Social History Household Members Other:: single Housing: House Patient Tobacco Use Status: Never used Tobacco e-Cigarette/Vaping Use: Never Used Substance Use Type Other:: gummies 2 weeks ago Have you been hit, kicked, punched, or otherwise hurt by someone within the past year? If so, by whom?: No Are you DNR?: No Advance Directives: No Advance Directives Information Provided: Yes Patient : No service: No Current occupational status: employed Current occupation: [employer] Cognitive needs: No Hearing needs: No Vision needs: Yes (contacts) Meds Allergies Allergy/AdvReac Type Severity Reaction Status Date / Time Seasonal Allergies Allergy Intermediate itchy, dry Verified 11/27/24 14:55 eyes Home Medications ?Medication ?Instructions ?Recorded ?Confirmed ?Last Taken ?Type omeprazole 20 mg tablet,delayed 20 mg PO DAILY 02/10/22 11/30/24 10/30/24 History release tirzepatide (weight loss) 5 mg/0.5 5 mg subcut QWEEK 10/23/24 11/30/24 11/09/24 History mL subcutaneous pen injector (Zepbound) Assessment and Plan Assessment Anesthesia Assessment: Chart Reviewed Documented by User: Christie Soler DO 11/30/24 07:20 HPI - Anesthesia Eval Anesthesia Pre-Procedure Meds Is the patient on any of the following meds?: GLP1/DPP4 PMFSH Past Medical History Medical History (Updated 11/27/24 @ 14:52 by Olga Hanson RN) GERD (gastroesophageal reflux disease) Anemia Abnormal Pap smear of cervix Family History Family History Mother HTN (hypertension) Maternal Uncle Colon cancer Family history of problems with anesthesia: No Surgical History Surgical History No pertinent past surgical history History of Problems with Anesthesia: No Social History Social History Household Members Other:: single Housing: House Patient Tobacco Use Status: Never used Tobacco e-Cigarette/Vaping Use: Never Used Substance Use Type Other:: gummies 2 weeks ago Have you been hit, kicked, punched, or otherwise hurt by someone within the past year? If so, by whom?: No Are you DNR?: No Advance Directives: No Advance Directives Information Provided: Yes Patient : No service: No Current occupational status: employed Current occupation: [employer] Cognitive needs: No Hearing needs: No Vision needs: Yes (contacts) Meds Allergies Allergy/AdvReac Type Severity Reaction Status Date / Time Seasonal Allergies Allergy Intermediate itchy, dry Verified 11/27/24 14:55 eyes Home Medications ?Medication ?Instructions ?Recorded ?Confirmed ?Last Taken ?Type omeprazole 20 mg tablet,delayed 20 mg PO DAILY 02/10/22 11/30/24 10/30/24 History release tirzepatide (weight loss) 5 mg/0.5 5 mg subcut QWEEK 10/23/24 11/30/24 11/09/24 History mL subcutaneous pen injector (Zepbound) Exam Exam Date and Time: 11/30/24 0718 Height,Weight and Vital Signs: Height 5 ft 7 in Weight 103.2 kg Vital Signs Temperature 98.5 F 11/30/24 06:33 Pulse Rate 84 11/30/24 06:33 Respiratory Rate 18 11/30/24 06:33 Pulse Oximetry 98 11/30/24 06:33 Oxygen Delivery Method Room Air 11/30/24 06:33 Temperature 98.5 F 11/30/24 06:33 Pulse Rate 84 11/30/24 06:33 Respiratory Rate 18 11/30/24 06:33 Pulse Oximetry 98 11/30/24 06:33 Oxygen Delivery Method Room Air 11/30/24 06:33 Airway Mallampati Class: I TM Dist: >3cm Neck ROM: Full Loose/Missing/Broken Teeth: No (patient denies any loose or broken teeth) Heart: S1S2 Lungs: CTAB Assessment and Plan Assessment Anesthesia Assessment: Anesthesia Plan Discussed and Chart Reviewed Final Anesthetic Review Family History of Problems with Anesthesia: No History of Problems with Anesthesia: No NPO: Yes ASA Class: II Final Preanesthetic Review: No Changes in Pt Med Stat, Meds/Allgs Chart Reviewed, Consent Obtained/Reviewed and Anes Risks/Benef Reviewed Patient Risk: Low Procedure Risk: Low Anesthetic Plan Anesthetic Plan: GA and Agree w/ Assess. and Plan Disposition: Standard PACU
--- NOTE | 2024-11-30 07:28 | MHC.SHP ---
Pre-Procedural Eval Section A - 24 Hr Update-Section A only Date of Service: 11/30/24 The patient is an INPATIENT: No Changes since office visit: No Cold of Flu in the past 2 weeks, No New Medical Problems, No Changes in Medication and No Patient answered all questions The patient has been examined within 24 hours of the surgical procedure. The History & Physical has been completed within 30 days and I have reviewed it.: Yes Section B - Complete if H&P > 30 days Chief Complaint: Abnormal uterine and vaginal bleeding, unspecified Allergies: Allergies Allergy/AdvReac Type Severity Reaction Status Date / Time Seasonal Allergies Allergy Intermediate itchy, dry Verified 11/27/24 14:55 eyes Plan Diagnosis/Plan: Unchanged I have reviewed the history and physical and performed a pertinent physical examination on my patient. No changes have occurred unless specified. Time Spent With Patient Time: Total time managing care of this patient today ____ minutes.
--- NOTE | 2024-11-30 07:57 | PM.OP ---
Brief Operative Note Date of Service: 11/30/24 Pre-op diagnosis: Abnormal uterine bleeding Post-op diagnosis: same (Endometrial polyp) Procedure: Hysteroscopy D&C, Polypectomy Surgeon: Enrico Dimas MD Anesthesia: GLMA Was an Business Case Analyst used for this Procedure?: No Estimated blood loss (mL): 0 Pathology: other (Endometrial Scrapping. Polyp) Condition: stable Disposition: PACU
--- NOTE | 2024-11-30 07:58 | W.PM.OPN ---
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 A sterile speculum was inserted in the patient's vagina. The anterior lip of the cervix was grasped with a single tooth tenaculum. The cervix was dilated up to 5 mm, then the scope was inserted in the patient's uterus. Inspection revealed endometrial polyp. The Myosure Reach device was used; it was introduced through the operative channel and polypectomy done with no complications. The scope was then taken out from the uterine cavity, sharp curettings was carried on with minimal to moderate amount of tissues retrieved. At the end of the procedure, all instruments were taken out of the patient uterine and vaginal cavity. The single tooth tenaculum was removed and homeostasis was assured using pressure,. The patient tolerated the procedure well and was transferred to the PACU in a stable condition.
[2024-11-30 08:02] VITALS: BP 121/76; PULSE 95; RESP 16; TEMP 36.1; O2SAT 99
[2024-11-30] MEDS: Acetaminophen 325 MG TABLET 650 MG PO (08:06)
[2024-11-30 08:07] VITALS: BP 125/80; PULSE 90; RESP 17; O2SAT 98
[2024-11-30 08:12] VITALS: BP 118/81; PULSE 83; RESP 17; O2SAT 97
[2024-11-30 08:17] VITALS: BP 117/80; PULSE 71; RESP 16; O2SAT 98
[2024-11-30 08:32] VITALS: BP 121/79; PULSE 69; RESP 16; TEMP 36.2; O2SAT 99
== END 2024-11-30 09:15 | disposition home or self-care (01) ==
PROVIDERS: PCP Internal Medicine; Visit Provider Obstetrics & Gynecology
PROC: 0UDB8ZZ Extraction of Endometrium, Via Natural or Artificial Opening Endoscopic (ICD-10-PCS; CPT 58558; principal; 2024-11-30 07:30)
DX: N93.9 Abnormal uterine and vaginal bleeding, unspecified (principal); N84.0 Polyp of corpus uteri; J30.2 Other seasonal allergic rhinitis
CPT/HCPCS: 58558; 81025; 88305; J1100; J1885; J2003; J2405; J2704; J3010

== ENCOUNTER → 2024-11-30 05:57 | Outpatient (BNV) | payer OTHER, SELFPAY | PROVIDERS: PCP Internal Medicine; Visit Provider Obstetrics & Gynecology | DX: N84.0 Polyp of corpus uteri (principal); N93.9 Abnormal uterine and vaginal bleeding, unspecified | CPT/HCPCS: 58558 ==

== ENCOUNTER 2024-12-13 07:54 | Outpatient (AMB) | payer OTHER, SELFPAY ==
--- NOTE | 2024-12-13 08:04 | A.OFFVIS_ITS ---
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 The pathology showed the following: A. Endometrial polyp, resection: Fragments of benign endometrial polyp and benign proliferative endometrium; no atypia or carcinoma. B. Endometrium, curettage: Benign proliferative endometrium and fragments of benign endometrial polyp; no atypia or carcinoma The following workup was done so far: H&H in 04/17 =11.9/37.7 TSH within normal GC/CT negative Co testing in 10/16 was negative Pelvic ultrasound showed the following: The uterus is anteverted and measures 9.2 x 4.2 x 6.1 cm. 5.3 x 4.1 x 4.1 cm fibroid, previously 2.5 x 2.0 x 2.6 cm. 1.8 x 1.9 x 1.8 cm fibroid identified on the prior exam is not appreciated on the current exam. Nabothian cysts. Endometrial thickness of 15 mm. Possible 2.0 x 1.0 x 0.9 cm endometrial polyp. Right ovary measures 3.2 x 2.5 x 2.1 cm, volume 8.9 mL. Left ovary measures 2.9 x 2.4 x 2.3 cm, volume 8.3 mL. Bilateral ovaries demonstrate multiple follicles. No significant free fluid. [facility] Medical History GERD (gastroesophageal reflux disease) Anemia Abnormal Pap smear of cervix Surgical History No pertinent past surgical history Family History Mother HTN (hypertension) Maternal Uncle Colon cancer Social History Household Members Other:: single Housing: House Patient Tobacco Use Status: Never used Tobacco e-Cigarette/Vaping Use: Never Used service: No Current occupational status: employed Current occupation: [employer] Cognitive needs: No Hearing needs: No Vision needs: Yes (contacts) Review of Systems Const All systems reviewed & are unremarkable except as noted in HPI and below Reports as per HPI and Reports no additional complaints GI Reports no additional complaints Reports no additional complaints Assessment & Plan Assessment & Plan (1) Abnormal uterine bleeding (AUB): Comment: Endometrial polyp on pelvic ultrasound status post hysteroscopic polypectomy Code(s): N93.9 - Abnormal uterine and vaginal bleeding, unspecified Category: Medical Plan: Discussed with the patient the results of the work up done and options of treatment including Lysteda, BCP's, Mirena IUD. All pros, cons, risks and benefits if each option was discussed with the patient and the patient decided to think about it and get back to us. All questions answered the patient verbalized understanding. (2) Uterine myoma: Code(s): D25.9 - Leiomyoma of uterus, unspecified Category: Medical Qualifiers: Uterine leiomyoma location: unspecified location Qualified Code(s): D25.9 - Leiomyoma of uterus, unspecified Plan: Discussed with the patient the findings on pelvic ultrasound & the risk of myosarcoma; in addition reviewed with the patient that malignancy and pre malignancy cannot be ruled out without hysterectomy for pathological evaluation ; furthermore, explained to the patient the limitation of pelvic ultrasound and endometrial biopsy in the setting. Discussed with the patient the typical symptoms that are caused by myomas including but not limited to pelvic pain, pressure symptoms, abnormal uterine bleeding. In addition discussed with the patient options of treatment for myomas including: Serial ultrasounds periodically to follow-up on the size of the myoma while targeting the treatment against fibroids related symptoms ( control pills, Mirena IUD, progesterone treatment, GnRH agonist/antagonist, uterine artery embolization or endometrial ablation) versus surgical treatment including hysterectomy and or myomectomy. All pros and cons, risks and benefits of all options were discussed with the patient. The patient understands that delay in surgical treatment in case of myosarcoma can affect her prognosis, after further discussion, the patient decided to think about it and get back to us . The patient is scheduled for ultrasound in few months and a follow-up appointment with Xiomy Rivera CNM Coding Level of Care Code Est Pt Level 3 (03015) Diagnoses Abnormal uterine bleeding (AUB) N93.9 Uterine leiomyoma, unspecified location D25.9 Uterine leiomyoma location: unspecified location
[2024-12-13 08:08] VITALS: BMI 35.5
== END 2024-12-13 08:22 | disposition home or self-care (01) ==
LOC: HO.HWS 07:54
PROVIDERS: PCP Internal Medicine; Visit Provider Obstetrics & Gynecology
DX: N93.9 Abnormal uterine and vaginal bleeding, unspecified (principal); D25.9 Leiomyoma of uterus, unspecified
CPT/HCPCS: 99213

== ENCOUNTER 2025-04-22 07:33 | Outpatient (REF) | payer OTHER, SELFPAY ==
[2025-04-22 07:47] LABS: MANUAL DIFF FLAG NO
[2025-04-22 08:01] LABS: Hematocrit 37.0 % (37.0-47.0); Hemoglobin 11.6 g/dl (12.0-16.0); Imm Gran Abs Auto 0.01 X10*3/uL (0.00-0.03); Imm Gran Pct Auto 0.2 % (0.0-0.4); Lymphocytes Absolute Auto 2.5 X10*3/uL (1.2-4.9); Mean Corpuscular HGB Conc 31.4 g/dl (31.0-35.0); Mean Corpuscular Hemoglobin 24.6 pg (27.0-33.0); Mean Corpuscular Volume 78.6 fL (80.0-98.0); NRBC Abs Auto 0.000 X10*3/uL (0.0-0.012); NRBC Pct Auto 0.0 /100WBC (0.0-0.2); Platelet Count 368 X10*3/uL (160-400); Red Blood Count 4.71 X10*6/uL (4.20-5.50); White Blood Count 5.1 X10*3/uL (4.8-10.8)
[2025-04-22 08:44] LABS: Appearance Urine Clear; Glucose Urine UA Negative (Negative); PH 5.0 (5.0-9.0); Specific Gravity - Urine 1.025 (1.005-1.025); UMIC TRIGGER UA YES
[2025-04-22 08:44] LABS: Alanine Aminotransferase 54 U/L (0-31); Albumin Level 4.1 g/dL (3.5-5.0); Alkaline Phosphatase 59 U/L (39-117); Anion Gap 10 (12-20); Aspartate Amino Transferase 30 U/L (5-31); Blood Urea Nitrogen 15 mg/dL (9-16); Calcium 9.1 mg/dL (8.4-10.2); Carbon Dioxide 23 mmol/L (22-29); Chloride 112 mmol/L (96-108); Cholesterol 171 mg/dL (<200); Estimated Glomerular Filt Rate > 60; HDL Cholesterol 40 mg/dL (>40); Iron 67 mcg/dL (30-160); Percent Iron Saturation 25 % (15-50); Potassium 4.0 mmol/L (3.3-5.1); Sodium 141 mmol/L (135-145); Total Iron Binding Capacity 263 mcg/dL (228-428); Total Protein 7.1 g/dL (6.5-8.0); Triglycerides 87 mg/dL (<150); Unsaturated Iron Binding 196 ug/dL
== END 2025-04-22 07:34 | disposition home or self-care (01) ==
LOC: HO.LAB 07:33
PROVIDERS: PCP Internal Medicine; Visit Provider Internal Medicine
DX: Z00.00 Encounter for general adult medical examination without abnormal findings (principal); R73.9 Hyperglycemia, unspecified; E66.01 Morbid (severe) obesity due to excess calories; D64.9 Anemia, unspecified
CPT/HCPCS: 36415; 80053; 80061; 81001; 82306; 83036; 83540; 84443; 85025